=== PATIENT | female | born 1995 | race Caucasian/White ===

== ENCOUNTER 2019-05-05 13:09 | Outpatient (CLI) | payer MEDICAID, SELFPAY ==
--- NOTE | 2019-05-05 | US_ITS ---
WS: [id number] OB ultrasound, 05/05/2019 Clinical Data: SUPERVISION OF NORMAL IN MULTIGRAVIDA IN SECOND TR Comparison: None. Findings: There is a single intrauterine in the breech presentation. The placenta is Anterior and gra de 0. There is a normal amount of amnionic fluid. The heart rate is 141 beats per minute. Measurements of growth and development: BPD: 5.0 cm HC: 18.5 cm AC: 16.4 cm FL: 3.6 cm The estimated weight is 422 g or approximately 15 ounces. The estimated gestational age is 21 weeks 2 days with an ERNST of approximately 09/13/2019. anatomy show a normal stomach, kidneys, bladder, cord insertion, three-vessel cord, entire spin e, four-chamber heart, lateral cerebral ventricles, cerebellum and cisterna magna. US/US OB >= 14 weeks fetus [id number] Impression: 1. Single intrauterine in breech presentation. 2. Estimated gestational age 21 weeks 2 days with an ERNST of 09/13/2019. 3. heart rate 141 beats per minute.
== END 2019-05-05 13:10 | disposition home or self-care (01) ==
PROVIDERS: Family Provider Family Medicine; Visit Provider Family Medicine
DX: O32.1XX0 Maternal care for breech presentation, not applicable or unspecified (principal); Z3A.21 21 weeks gestation of pregnancy

== ENCOUNTER 2019-06-08 12:49 | Outpatient (CLI) | payer MEDICAID, SELFPAY ==
[2019-06-08 13:16] VITALS: BP 117/63; PULSE 77; RESP 17; TEMP 36.8
[2019-06-08] MEDS: nitrofurantoin SR (BID) 100 mg Capsule PO (13:43)
[2019-06-08 13:50] VITALS: BP 117/63; PULSE 77; RESP 17; TEMP 36.8
[2019-06-08 14:06] LABS: Bilirubin Urine Neg (NEGATIVE); Blood Urine 3+ (Negative); Glucose Urine UA Norm (Normal); Ketones Urine Negative (Negative); Nitrate Urine Negative (Negative); Protein Urine 1+ (Negative); Specific Gravity, Urine 1.015 (1.005-1.030); Urine Appearance Bloody (CLEAR); Urine Color Red (Yellow)
[2019-06-08 14:07] LABS: Sulfosalicylic Acid Urine Positive; pH Urine 9 (5-7)
[2019-06-08 14:08] LABS: Leukocyte Esterase Urine Negative (Negative); Urobilinogen Urine Norm (Negative)
[2019-06-08 14:09] LABS: RBC Urine TOO NUMEROUS TO CNT /hpf (0-2)
[2019-06-08 14:10] LABS: Bacteria Urine 2+; Mucus Urine 1+
[2019-06-08 14:11] LABS: Add Urine Culture? No
== END 2019-06-08 13:50 | disposition home or self-care (01) ==
LOC: OPOB 13:08 → OBGYN 13:17 → OPOB 06-09 08:18
PROVIDERS: Family Provider Family Medicine; Visit Provider Family Medicine
DX: O46.90 Antepartum hemorrhage, unspecified, unspecified trimester (principal); Z3A.00 Weeks of gestation of pregnancy not specified
CPT/HCPCS: 81001; 87086; 99211

== ENCOUNTER 2019-09-08 01:03 | Outpatient (CLI) | payer MEDICAID, SELFPAY ==
[2019-09-08] VITALS (12 sets, daily range): BP systolic 0–133; BP diastolic 0–77; PULSE 71–96; RESP 16; TEMP 36.7–36.8; BMI 27.4
== END 2019-09-08 03:19 | disposition home or self-care (01) ==
LOC: OPOB 01:05 → OBGYN 01:06
PROVIDERS: Family Provider Family Medicine; Visit Provider Family Medicine
DX: O26.899 Other specified pregnancy related conditions, unspecified trimester (principal); Z3A.00 Weeks of gestation of pregnancy not specified; R10.9 Unspecified abdominal pain
CPT/HCPCS: 59025; 99211

== ENCOUNTER 2019-09-11 01:56 | Inpatient (IN) | payer MEDICAID, SELFPAY ==
[2019-09-11] VITALS (69 sets, daily range): BP systolic 0–161; BP diastolic 0–92; PULSE 54–101; RESP 16–18; TEMP 36.6–37.1; O2SAT 97–100
[2019-09-11 02:52] LABS: Nitrazine Paper, PH Inconclusive
[2019-09-11 02:57] LABS: Actim Prom Positive
[2019-09-11 04:15] LABS: Basophils % 0.3 %; Eosinophils # 0.2 10^3/uL (0.0-0.8); Eosinophils % 1.6 %; Hematocrit 31.8 % (37.0-47.0); Hemoglobin 9.9 g/dL (11.5-15.3); Lymphocytes # 2.4 10^3/uL (0.8-4.8); Lymphocytes % 21.5 %; Mean Corpuscular HGB Conc 31.1 g/dL (30.0-36.0); Mean Corpuscular Hemoglobin 25.7 pg (28.0-34.0); Mean Corpuscular Volume 82.6 fL (81-99); Mean Platelet Volume 10.8 fL (7.4-10.4); Monocytes # 0.8 10^3/uL (0.2-0.9); Monocytes % 7.6 %; Neutrophils # 7.6 10^3/uL (1.8-7.7); Neutrophils % 68.5 %; Nucleated Red Blood Cells % 0 %; Platelet Count 325 10^3/cmm (130-400); Red Blood Count 3.85 10^6/uL (4.1-5.3); Red Cell Distribution Width 17.2 % (12.1-15.1); White Blood Count 11.1 10^3/uL (4.0-10.0)
[2019-09-11] MEDS: lactated ringers 1,000 ML 999 ML IV (05:14)
[2019-09-11] MEDS: alum-mag-hydroxide-sime 30 mL UDC PO (05:21)
--- NOTE | 2019-09-11 08:24 | ANES.PREANE2 ---
Pre-Anesthetic Assessment Pre-Anesthetic Assessment: Height/Weight: Height 1.75 m Weight 189 g Temp Pulse Resp BP Pulse Ox 97.8 F 65 16 106/56 97 09/11/19 07:43 09/11/19 08:13 09/11/19 07:43 09/11/19 08:13 09/11/19 05:39 Preop Diagnosis: Labor Pain Proposed Procedure: NERI Was Beta Joni taken within 24 hours: N/A Last Intake: 21:00 Social: Social History: No alcohol and No tobacco Exam: Pre-Anes Outpt Exam: alert, oriented x 3, clear to auscultation bilaterally and regular rate & rhythm Airway: Submandibular: WNL Cervical ROM: WNL MP: 2 Dentition: Full History/ROS: No significant history except as noted and No significant complaints CV/HEM: CV/HEM: None reported : : None reported Hepatic: Hepatic: None reported GI: GI: None reported Metabolic: Metabolic: None reported Musc/skel: Musc/skel: None reported Neuropsych: Neuropsych: None reported Anesthetic Plan: ASA status: 2 Anesthesia: Anesthesia Evaluation and Regional (specify below) Other: NERI Risk of > 500 ml blood loss (7ml/kg in children): No Meds/Allergies Current Medications: Current Medications Generic Name Dose Route Start Last Admin Trade Name Freq PRN Reason Stop Dose Admin Al Hydrox/Mg [place] x/Simethicone 30 ml 09/11/19 04:01 09/11/19 05:21 Maalox PO 30 ml Q4H PRN Administration INDIGESTION Ropivacaine 200 mg in 100 mls @ 13 mls/hr 09/11/19 04:00 09/11/19 05:19 Naropin Premix EPIDURAL 13 mls/hr .[id number] RELL Administration PFSH Anesthesia Female Reproductive History: : 3 Data Anesthesia CBC & Chem 7: 09/11/19 03:55 Other Labs: Laboratory Results - last 48 hr 09/11/19 09/11/19 02:40 03:55 WBC 11.1 H RBC 3.85 L Hgb 9.9 L Hct 31.8 L MCV 82.6 MCH 25.7 L MCHC 31.1 RDW 17.2 H Plt Count 325 MPV 10.8 H Neut % (Auto) 68.5 Lymph % (Auto) 21.5 [place] % (Auto) 7.6 Eos % (Auto) 1.6 Baso % (Auto) 0.3 Neut # (Auto) 7.6 Lymph # (Auto) 2.4 [place] # (Auto) 0.8 Eos # (Auto) 0.2 Baso # (Auto) 0.0 Nucleated RBC % (auto) 0 Nucleated RBCs # 0.0 Insulin-like GF I Positive Cardiac Studies: No Data to Display
--- NOTE | 2019-09-11 08:25 | ANES.PROC ---
Anesthesia Procedures Procedure/Date: 09/11/19 Epidural: Time Out Performed: Yes Consents Signed: Procedure Consent Consent: requested by attending/covering physician Lumbar Level: L3-L4 Epidural position: sitting Epidural procedure: sterile prep of area, 1% lidocaine to numb the area, 18 g needle, negative for paresthesia passed, neg for paresthesia, test dose given, 1.5% xylocaine 1:200k epi, 0.2% Ropivacaine bolus ml, placed PCEA, no systemic response, sterile dressing applied, L.U.D. no apparent complications and 0.2% Ropiavacaine @ mls/hr Additional Comments: JOSE MANUEL at 6 cm. Ropiv 0.2% 8cc and Fentanyl 100 mcg bolus
[2019-09-11] MEDS: oxytocin 30 UNIT/500 ML BAG 600 UNIT IV (09:45)
--- NOTE | 2019-09-11 10:00 | P.PCNOB_ITS ---
Delivery Note: Date of delivery: September 11, 2019 Pre-Delivery Course: The patient had routine care at [facility]. There were no complications during the Delivery: This is a 24-year-old G2, P1 at 39 weeks 4 days gestation who was admitted to labor and delivery in active labor with spontaneous rupture of membranes. She had clear fluid noted. She was GBS negative. She received an epidural for pain management. She had a normal spontaneous vaginal delivery of a viable female weight 3720 g 8 pounds 5 ounces Apgars 9 and 9 over an intact perineum. The was suctioned at delivery and placed on the mother's chest. The cord was clamped and cut. Cord blood was obtained. The placenta was delivered grossly intact and normal to inspection. There was a very small second-degree perineal laceration that was sutured using 3-0 chromic. Mother and infant were doing well after delivery. EBL 200 mL A&P Assessment and plan (1) Normal spontaneous vaginal delivery: Routine care Status: Acute Coding Level of Care Code Acute Production Controller for Chg Fwd Diagnoses Normal spontaneous vaginal delivery O80
--- NOTE | 2019-09-11 13:00 | PC.NURSE ---
Patient ambulated to room assisted by nurse
[2019-09-11] MEDS: lanolin oint 7 gm 1 APPLIC TOPICAL (13:22)
[2019-09-11] MEDS: docusate sodium 100 mg Capsule PO (17:50)
[2019-09-11] MEDS: benzocaine-menthol 78 gm Canister 1 SPRAY TOPICAL (20:11)
[2019-09-11 22:03] LABS: Hematocrit 31.8 % (37.0-47.0); Hemoglobin 10.2 g/dL (11.5-15.3); Mean Corpuscular HGB Conc 32.1 g/dL (30.0-36.0); Mean Corpuscular Hemoglobin 26.8 pg (28.0-34.0); Mean Corpuscular Volume 83.7 fL (81-99); Mean Platelet Volume 10.9 fL (7.4-10.4); Platelet Count 316 10^3/cmm (130-400); Red Cell Distribution Width 16.9 % (12.1-15.1)
[2019-09-12 04:00] VITALS: BP 129/66; PULSE 60; RESP 16; TEMP 36.7; O2SAT 96
[2019-09-12] MEDS: prenatal vitamin Capsule 1 CAP PO (08:36)
[2019-09-12] MEDS: docusate sodium 100 mg Capsule PO (08:36)
[2019-09-12 10:20] VITALS: BP 119/73; PULSE 84; RESP 16; TEMP 36.7; O2SAT 97
--- NOTE | 2019-09-12 11:31 | P.DS_ITS ---
Discharge Providers MANAGER NON PROFIT Date of Admission: 09/11/19 01:56 Date of Discharge: 09/12/19 Attending Provider at Admission: Emilee Caldwell MD Attending Provider at Discharge: Emilee Caldwell MD Diagnoses at Discharge Discharge Diagnosis (1) Normal spontaneous vaginal delivery: Status: Acute Reason for Visit Reason for Visit: Reason For Visit: CONTRACTIONS Hospital Course Hospital Course: This is a 24-year-old G2 now P2 who was admitted in active labor with spontaneous rupture of membranes. She had a normal spontaneous va ginal delivery of a viable female . After delivery mother and infant were doing well. On day #1 she was ambulating, tolerating a regular diet, had decreased vaginal bleeding and was comfortable with discharge home Information Peripartum Data: Infant Delivery Method: Vaginal Physical Exam HENMT: COMMON NORMALS: normocephalic HEAD & SCALP: normocephalic Eye: COMMON NORMALS: Equal, round and reactive pupils present and EOMs intact bilaterally PUPIL: Yes Equal, round and reactive pupils present Chest: COMMONS NORMALS: normal inspection of the chest Resp: COMMON NORMALS: normal respiratory effort, No retractions and clear to auscultation bilaterally AUSCULTATION: clear to auscultation bilaterally Cardio: COMMON NORMALS: regular rate and regular rhythm RATE: regular rate RHYTHM: regular rhythm GI: COMMON NORMALS: Soft to palpation and non-tender (Fundus firm U- 3) PALPATION: Yes Soft to palpation Extremity: COMMON NORMALS: negative for no calf tenderness GENERAL: No edema Psych: COMMON NORMALS: mental status grossly normal and Normal thought process present THOUGHT PROCESS: Normal thought process present Urinary Catheter Management^: Lloyd: Cath Placed During This Visit: yes Urinary Catheter Date of Insertion: 09/11/19 Urinary Catheter Time of Insertion: 05:30 Discharge Data Data Completed and Pending: Labs from last 24 hours 09/11/19 21:40 WBC 13.0 H RBC 3.80 L Hgb 10.2 L Hct 31.8 L MCV 83.7 MCH 26.8 L MCHC 32.1 RDW 16.9 H Plt Count 316 MPV 10.9 H Vitals: Last Vital Signs Temp 98.0 F 09/12/19 10:20 Pulse 84 09/12/19 10:20 Resp 16 09/12/19 10:20 BP 119/73 05/15/20 10:20 Pulse Ox 97 09/12/19 10:20 Discharge Plan Discharge Patient Disposition: Home, Self-Care Condition: Stable Prescriptions: Continued PNV cmb#[id number]-ferrous fumarate-FA [ Multivitamins] 28 mg iron- 800 mcg Tablet 1 tab PO DAILY RF: 0 Discharge Orders: Discharge Order (Routine); Ordered 09/12/19 Ordered By: Emilee Caldwell Referrals: Emilee Caldwell MD [Family Provider] - 1 month Discharge Diet: Usual diet Discharge Activity: Limit activity as instructed Patient Instructions: Vitamins (By mouth), OB Discharge Report, OB Food/Drug Interaction Guide, OB Care at Home, OB Home Care, OB Proud Parent Packet, OB Vaginal Deliveries Discharge Attestations MANAGER NON PROFIT Time Spent in Discharge Care*: less than 30 min Coding Level of Care Code Acute Film Flat Inspector for Chg Fwd Diagnoses Normal spontaneous vaginal delivery O80
[2019-09-12 13:05] VITALS: BP 111/70; PULSE 84; RESP 16; TEMP 36.7; O2SAT 97
[2019-09-12 13:33] VITALS: BP 111/70; PULSE 84; RESP 16; TEMP 36.7; O2SAT 97
== END 2019-09-12 13:33 | disposition home or self-care (01) | DRG 807 ==
LOC: OBGYN 02:24 → OPOB 10:14 → OBGYN 10:14
PROVIDERS: Admitting Provider Family Medicine; Family Provider Family Medicine; Visit Provider Family Medicine
DX: O70.1 Second degree perineal laceration during delivery (principal); Z37.0 Single live birth; Z3A.39 39 weeks gestation of pregnancy
CPT/HCPCS: 12345; 36415; 51702; 59025; 59409; 83986; 84112; 85025; 85027; 96374; 99211; J2795; J3010

== ENCOUNTER → 2022-03-28 15:07 | Outpatient (BNVA) | payer MEDICAID, SELFPAY | PROVIDERS: Family Provider Family Medicine; Visit Provider Obstetrics & Gynecology | DX: E28.2 Polycystic ovarian syndrome (principal); F32.A Depression, unspecified; R63.4 Abnormal weight loss | CPT/HCPCS: 76830 ==

== ENCOUNTER → 2022-03-29 11:10 | Outpatient (BNVA) | payer MEDICAID, SELFPAY | PROVIDERS: Family Provider Family Medicine; Visit Provider Obstetrics & Gynecology | DX: R63.4 Abnormal weight loss (principal); E28.2 Polycystic ovarian syndrome; F32.A Depression, unspecified | CPT/HCPCS: 84443 ==

== ENCOUNTER → 2022-05-31 14:58 | Outpatient (BNVA) | payer MEDICAID, SELFPAY | PROVIDERS: Family Provider Family Medicine; Visit Provider Nurse Practitioner Women's Health | DX: R39.9 Unspecified symptoms and signs involving the genitourinary system (principal); Z20.2 Contact with and (suspected) exposure to infections with a predominantly sexual mode of transmission | CPT/HCPCS: 81000 ==

== ENCOUNTER 2022-07-18 11:44 | Emergency (ER) | payer MEDICAID, SELFPAY ==
[2022-07-18 11:51] VITALS: BP 120/79; PULSE 71; RESP 15; TEMP 36.7; O2SAT 99
--- NOTE | 2022-07-18 12:18 | ED_ITS ---
HPI - Abdominal Pain General: Chief Complaint: Abdominal Pain Stated Complaint: abd pain Time Seen by Provider: 07/18/22 12:18 Source: patient Mode of arrival: ambulatory Limitations: no limitations History of Present Illness: Patient is a 27-year-old female who presents to ED today with a complaint of lower pelvic pain over the past several days. Patient states she does have a history of PCOS and states her pain feels like ovarian pain. She is not having any vaginal bleeding. She does report vaginal discharge. She states she was diagnosed with chlamydia a few months ago and completed her course of doxycycline. She states her partner was also treated. She states she has not had intercourse since that treatment. She denies dyspareunia. Denies urinary symptoms. Denies any nausea, vomiting, diarrhea, or changes in bowel habits. No fevers. MD elicited complaint: abdominal pain (pelvic pain) Pertinent past history: other (ovarian cysts) Onset (ago): day(s) Pain Consistency: constant Location: Pelvis Severity: moderate Quality: stabbing and sharp Radiation: none Migration to: no migration Exacerbating factors: nothing Relieving factors: nothing Associated Symptoms: Denies chills, diarrhea, dysuria, fever(s), hematuria, nausea and vomiting Related Data: Patient : No Review of Systems Const: Denies: fever(s), chills, body aches, fatigue or malaise Card: Denies: chest pain Resp: Denies: dyspnea GI: Denies: abdominal pain, nausea, vomiting or diarrhea : Reports: vaginal discharge and pelvic pain; Denies: flank pain, difficulty voiding, dysuria, urinary frequency, urinary urgency, urinary hesitancy, hematuria, genital lesions, genital pruritis, vaginal odor or vaginal bleeding Musc: Denies: back pain Skin/Breast: Denies: rash Neuro: Denies: headache(s) or dizziness PFSH ED PFSH: Medical History No pertinent past medical history Family History Grandmother Breast cancer paternal Father Diabetes Mother Stroke Denies family history of Colon cancer Ovarian cancer Hypercholesteremia Hypertension Uterine cancer Thyroid disease Social History Smoking and tobacco status: current every day smoker Physical Exam Const: COMMON NORMALS: no acute distress, average body habitus, patient oriented x3, no limitations, healthy appearing, alert and well nourished GENERAL APPEARANCE: cooperative ORIENTATION/CONSCIOUSNESS: Yes awake, Yes oriented to person, Yes oriented to place and Yes oriented to time Resp: COMMON NORMALS: normal respiratory effort and clear to auscultation bilaterally AUSCULTATION: clear to auscultation bilaterally Cardio: COMMON NORMALS: regular rate and regular rhythm RATE: regular rate RHYTHM: regular rhythm GI: COMMON NORMALS: Normal to inspection, nondistended, normoactive bowel sounds present, Soft to palpation, No hepatosplenomegaly present and no masses INSPECTION: Yes normal to inspection AUSCULTATION: Yes normoactive bowel sounds PALPATION: Yes Soft to palpation, Yes Tenderness to palpation present (GI) (pelvis), No Guarding due to palpation present (GI), No Rigid due to palpation and Yes No hepatosplenomegaly present : COMMON NORMALS: Yes no CVA tenderness BLADDER/KIDNEY EXAM: Yes no CVA tenderness OTHER: pt deferred pelvic exam-agreeable to self collect swabs Back/Pelvis: COMMON NORMALS: no CVA tenderness Neuro: DAVID COMA SCALE: document GCS findings Jackson coma scale eye opening: Spontaneous Jackson coma scale verbal response: Orientated Jackson coma scale motor response: Obey commands David coma scale total score: 15 COMMON NORMALS: patient oriented x3 SENSORIUM/ORIENTATION: Yes alert, Yes oriented to person, Yes oriented to place and Yes oriented to time Skin: COMMON NORMALS: no rashes or lesions noted GENERAL SKIN EXAM: no rashes or lesions noted Course Vital Signs: Vital signs: Vital Signs Temperature 98.1 F 07/18/22 11:51 Pulse Rate 71 07/18/22 11:51 Respiratory Rate 15 07/18/22 11:51 Blood Pressure 120/79 07/18/22 11:51 Pulse Oximetry 99 07/18/22 11:51 Oxygen Delivery Me thod 07/18/22 11:51 MDM - Abdominal Pain Medical Decision Making Patient appears in no acute distress. Her vital signs are normal. Blood work /UA is unremarkable. CT scan showing bilateral ovarian cyst with a large cyst on her left. Wet prep is negative for trichomoniasis, BV, yeast. Gonorrhea/chlamydia swab pending. She would like to hold off on prophylactic treatment at this time. Recommend she follow-up with her bronze plater as soon as possible. Return ED precautions given. Lab Data 07/18/22 12:37 07/18/22 12:37 Labs/Radiology: Radiology Impressions Transvaginal US 07/18/22 13:01 Impression: Bilateral ovarian cysts with a large cyst on the left. Laboratory Results WBC 5.9 10^3/uL (4.0-10.0) 07/18/22 12:37 RBC 4.33 10^6/uL (4.1-5.3) 07/18/22 12:37 Hgb 12.2 g/dL (11.5-15.3) 07/18/22 12:37 Hct 38.1 % (37.0-47.0) 07/18/22 12:37 MCV 88.0 fl (81-99) 07/18/22 12:37 MCH 28.2 pg (28.0-34.0) 07/18/22 12:37 MCHC 32.0 g/dL (30.0-36.0) 07/18/22 12:37 RDW 13.2 % (12.1-15.1) 07/18/22 12:37 Plt Count 325 10^3/cmm (130-400) 07/18/22 12:37 MPV 9.9 fL (7.4-10.4) 07/18/22 12:37 Neut % (Auto) 60.8 % 07/18/22 12:37 Lymph % (Auto) 30.4 % 07/18/22 12:37 [place] % (Auto) 6.3 % 07/18/22 12:37 Eos % (Auto) 2.0 % 07/18/22 12:37 Baso % (Auto) 0.3 % 07/18/22 12:37 Neut # (Auto) 3.58 10^3/uL (1.8-7.7) 07/18/22 12:37 Lymph # (Auto) 1.8 10^3/uL (0.8-4.8) 07/18/22 12:37 [place] # (Auto) 0.4 10^3/uL (0.2-0.9) 07/18/22 12:37 Eos # (Auto) 0.1 10^3/uL (0.0-0.8) 07/18/22 12:37 Baso # (Auto) 0.0 10^3/uL (0.0-0.1) 07/18/22 12:37 Nucleated RBC % (auto) 0 % 07/18/22 12:37 Nucleated RBCs # 0.0 /100WBC 07/18/22 12:37 Sodium 137 mmol/L (136-145) 07/18/22 12:37 Potassium 4.1 mmol/L (3.5-5.1) 07/18/22 12:37 Chloride 105 mmol/L (98-107) 07/18/22 12:37 Carbon Dioxide 23 mmol/L (22-29) 07/18/22 12:37 Anion Gap 13.1 (5-19) 07/18/22 12:37 BUN 6 mg/dL (6-20) 07/18/22 12:37 Creatinine 0.6 mg/dL (0.5-0.9) 07/18/22 12:37 GFR Calculation 121.8 mL/min (90-130) 07/18/22 12:37 Glucose 77 mg/dL (65-115) 07/18/22 12:37 Calculated Osmolality 280 mOsm/kg (285-295) L 07/18/22 12:37 Calcium 8.9 mg/dL (8.5-10.5) 07/18/22 12:37 Total Bilirubin 0.3 mg/dL (0.15-1.2) 07/18/22 12:37 AST 12 U/L (0-32) 07/18/22 12:37 ALT < 5 U/L (0-33) 07/18/22 12:37 Alkaline Phosphatase 53 U/L (35-105) 07/18/22 12:37 Total Protein 6.9 g/dL (6.6-8.7) 07/18/22 12:37 Albumin 4.1 g/dL (3.5-5.2) 07/18/22 12:37 Globulin 2.8 g/dL (1.3-4.6) 07/18/22 12:37 Lipase 34 U/L (13-60) 07/18/22 12:37 HCG, Qual Negative (Negative) 07/18/22 12:37 Urine Color Yellow (Yellow) 07/18/22 12:37 Urine Appearance Clear (CLEAR) 07/18/22 12:37 Urine pH 5 (5-7) 07/18/22 12:37 Ur Specific [place] 1.020 (1.005-1.030) 07/18/22 12:37 Urine Protein Neg (Negative) 07/18/22 12:37 Urine Glucose (UA) Norm (Normal) 07/18/22 12:37 Urine Ketones Negative (Negative) 07/18/22 12:37 Urine Blood Neg (Negative) 07/18/22 12:37 Urine Nitrate Negative (Negative) 07/18/22 12:37 Urine Bilirubin Neg (Negative) 07/18/22 12:37 Urine Urobilinogen Neg mg/dL (Negative) 07/18/22 12:37 Ur Leukocyte Esterase Trace (Negative) H 07/18/22 12:37 Urine RBC None /hpf (0-2) 07/18/22 12:37 Urine WBC 0-4 /hpf (0-5) H 07/18/22 12:37 Ur Squamous Epith Cells 0-4 /hpf (0-5) H 07/18/22 12:37 Calcium Oxalate Crystal 5-10 /hpf H 07/18/22 12:37 Amorphous Sediment Not Reportable 07/18/22 12:37 Urine Bacteria Trace /hpf (NONE) 07/18/22 12:37 Discharge Plan Discharge Patient Disposition: Home Clinical Impression: PCOS (polycystic ovarian syndrome), Pelvic pain Condition: Stable Prescriptions: New acetaminophen-codeine 300-30 mg tablet 1 tab PO Q6H PRN (Reason: pain) Qty: 10 0RF No Action citalopram [Celexa] 10 mg tablet 10 mg PO DAILY Qty: 30 6RF levonorgestrel-ethinyl estrad [Aviane] 0.1-20 mg-mcg tablet 1 tab PO DAILY Qty: 28 12RF sertraline [Zoloft] 50 mg tablet 50 mg PO DAILY Qty: 30 3RF Rx Instructions: starting dose 25 mg for 7 days then increase to 50 mg/daily doxycycline hyclate 100 mg capsule 100 mg PO BID Qty: 14 0RF azithromycin 250 mg tablet 1,000 mg PO ONCE 1 Days Qty: 4 0RF Rx Instructions: take together as one dose Discharge Orders: Discharge ED (Routine); Ordered 07/18/22 Ordered By: Cierra Quach Patient Instructions: Ovarian Cyst (ED), Pelvic Pain (ED) Stand Alone Forms: Work/School Release Coding Level of Care Code ED [employer] Professional for Dolores Encarnacion
[2022-07-18 12:53] LABS: Basophils % 0.3 %; Eosinophils # 0.1 10^3/uL (0.0-0.8); Hematocrit 38.1 % (37.0-47.0); Hemoglobin 12.2 g/dL (11.5-15.3); Lymphocytes # 1.8 10^3/uL (0.8-4.8); Lymphocytes % 30.4 %; Mean Corpuscular Hemoglobin 28.2 pg (28.0-34.0); Mean Platelet Volume 9.9 fL (7.4-10.4); Monocytes # 0.4 10^3/uL (0.2-0.9); Monocytes % 6.3 %; Neutrophils # 3.58 10^3/uL (1.8-7.7); Neutrophils % 60.8 %; Nucleated Red Blood Cells % 0 %; Platelet Count 325 10^3/cmm (130-400); Red Blood Count 4.33 10^6/uL (4.1-5.3); Red Cell Distribution Width 13.2 % (12.1-15.1); White Blood Count 5.9 10^3/uL (4.0-10.0)
--- NOTE | 2022-07-18 13:01 | US_ITS ---
WS: [id number] Pelvic ultrasound, 07/18/2022 Clinical Data: pelvic pain Comparison: Pelvic ultrasound, 03/28/2022 Findings: The uterus measures 8.6 cm x 5.9 cm x 5.6 cm. The endometrium is is not increased in size. No intrauterine or abnormal intrauterine mass is seen. There is minimal fluid in the endometrium. The cervical length is long and closed . The left ovary measures 5.2 cm x 2.8 cm x 4.7 cm with a simple cyst measuring 2.97 x 3.02 x 4.41 cm. The right ovary measures 3.9 cm x 3.0 cm x 2.5 cm with a simple cyst measuring 0.88 x 1.38 x 1.40 cm. There is minimal fluid in the cul-de-sac US/US transvaginal [id number] Impression: Bilateral ovarian cysts with a large cyst on the left.
[2022-07-18 13:11] LABS: Alanine Aminotransferase < 5 U/L (0-33); Albumin Level 4.1 g/dL (3.5-5.2); Alkaline Phosphatase 53 U/L (35-105); Anion Gap 13.1 (5-19); Aspartate Amino Transferase 12 U/L (0-32); Blood Urea Nitrogen 6 mg/dL (6-20); Calcium 8.9 mg/dL (8.5-10.5); Carbon Dioxide 23 mmol/L (22-29); Chloride 105 mmol/L (98-107); Globulin 2.8 g/dL (1.3-4.6); Glomerular Filtration Rate 121.8 mL/min (90-130); Glucose 77 mg/dL (65-115); Lipase 34 U/L (13-60); Osmolality Calculated 280 mOsm/kg (285-295); Potassium 4.1 mmol/L (3.5-5.1); Sodium 137 mmol/L (136-145); Total Bilirubin 0.3 mg/dL (0.15-1.2); Total Protein 6.9 g/dL (6.6-8.7)
[2022-07-18 13:14] LABS: HCG, Serum Qual Negative (Negative)
[2022-07-18 13:29] LABS: Add Urine Microscopic? YES; Bilirubin Urine Neg (Negative); Blood Urine Neg (Negative); Glucose Urine UA Norm (Normal); Ketones Urine Negative (Negative); Leukocyte Esterase Urine Trace (Negative); Nitrate Urine Negative (Negative); Protein Urine Neg (Negative); Urine Appearance Clear (CLEAR); Urine Color Yellow (Yellow); Urobilinogen Urine Neg (Negative); pH Urine 5 (5-7)
[2022-07-18 13:30] LABS: Bacteria Urine TRACE /hpf; Squamous Epithelial Cell Urine 0-4 /hpf (0-5); WBC Urine 0-4 /hpf (0-5)
[2022-07-18 13:31] LABS: Add Urine Culture? No
[2022-07-18 14:50] VITALS: BP 103/68; PULSE 67; RESP 18; TEMP 36.8; O2SAT 100
--- NOTE | 2022-07-21 12:57 | DCPLANNER ---
manager private called patient due to no primary care physician - patient declines at this time
== END 2022-07-18 14:34 | disposition home or self-care (01) ==
PROVIDERS: Emergency Provider Physician Assistant
DX: E28.2 Polycystic ovarian syndrome (principal); F17.210 Nicotine dependence, cigarettes, uncomplicated
CPT/HCPCS: 76830; 80053; 81001; 83690; 84703; 85025; 87210; 87491; 87591; 99284

== ENCOUNTER → 2022-09-01 08:10 | Outpatient (BNVA) | payer MEDICAID, SELFPAY | PROVIDERS: Visit Provider Obstetrics & Gynecology | DX: E28.2 Polycystic ovarian syndrome (principal) | CPT/HCPCS: 76830 ==

== ENCOUNTER → 2022-09-29 15:30 | Outpatient (BNVA) | payer MEDICAID, SELFPAY | PROVIDERS: Visit Provider Obstetrics & Gynecology | DX: N89.8 Other specified noninflammatory disorders of vagina (principal) | CPT/HCPCS: 81000; 87086 ==

== ENCOUNTER → 2022-11-14 14:10 | Outpatient (BNVA) | payer MEDICAID, SELFPAY | PROVIDERS: Visit Provider Obstetrics & Gynecology | DX: Z32.00 Encounter for pregnancy test, result unknown (principal) | CPT/HCPCS: 84702 ==

== ENCOUNTER 2022-11-15 13:09 | Emergency (ER) | payer MEDICAID, SELFPAY ==
[2022-11-15 13:11] VITALS: BP 102/73; PULSE 83; RESP 16; TEMP 37; O2SAT 100; BMI 21.4
--- NOTE | 2022-11-15 13:35 | ED_ITS ---
HPI - Neuro Symptoms/Deficit General: Chief Complaint: Neuro Symptoms/Deficit Stated Complaint: numbness in hands and face, slurred speech Time Seen by Provider: 11/15/22 13:22 Source: patient Mode of arrival: ambulatory History of Present Illness: 27-year-old female who presents to the emergency room with complaints of headache and slurred speech states she has some weakness in her right arm. States it began about 45 minutes to an hour prior to arrival. She tells me she is never had a headache this bad in her life. She said she had a positive test this week. She also has seen several other emergency room's in the last 2 weeks and had CTs for evaluation of for headaches to rule out tumor. She said this headache seems different. During stroke testing she has ataxia of her left leg and her right arms complaining of numbness in her right arm. She does not seem to have any dysarthria although she presents is saying she has slurring of her speech none is noted during exam. No recent trauma. There is a serum quantitative beta-hCG in the chart from yesterday Of 16,669. Onset (ago): day(s) Location: speech, right arm and left leg Quality: weak Relieving factors: none Exacerbating factors: none Associated symptoms: Reports headache(s); Deny chest pain, cough, diaphoresis, fevers/chills, anorexia, malaise, nausea, seizures, short of breath, syncope, tingling, vertigo, vomiting or weakness Treatments Prior to Arrival: none Review of Systems Const: Denies: fever(s), chills, malaise or diaphoresis Eyes: Denies: change in vision ENMT: Denies: throat pain, ear or mastoid pain, nasal discharge or nasal congestion Card: Denies: chest pain or syncope Resp: Denies: dyspnea, productive cough or non-productive cough GI: Denies: abdominal pain, nausea or vomiting : Denies: flank pain, difficulty voiding, dysuria, urinary frequency or urinary urgency Skin/Breast: Denies: rash or pruritus Neuro: Reports: headache(s), numbness in extremities and Slurred speech present; Denies: vertigo PFSH ED PFSH: Medical History No pertinent past medical history Family History Grandmother Breast cancer paternal Father Diabetes Mother Stroke Denies family history of Colon cancer Ovarian cancer Hypercholesteremia Hypertension Uterine cancer Thyroid disease Social History Smoking and tobacco status: current every day smoker NIH stroke score NIHSS: Level Of Consciousness - 1a: 0 Level Of Consciousness Questions - 1b: Both Correct Level Of Consciousness Commands - 1c: Both Correct Best Gaze - 2: Normal Visual [place] - 3: No Visual Loss Facial Palsy - 4: Normal Motor Arm Right - 5: Drift Motor Arm Left - 5: No Drift Motor Leg Right - 6: No Drift Motor Leg Left - 6: No Drift Limb Ataxia - 7: Present In Two Limbs (Right arm left leg) Sensory - 8: Normal Best Language - 9: No Aphasia Dysarthia - 10: Normal Extinction And Inattention - 11: 0 Score: Total Score: 3 Physical Exam Const: GENERAL APPEARANCE: cooperative and comfortable ORIENTATION/CONSCIO USNESS: Yes awake, Yes oriented to person, Yes oriented to place and Yes oriented to time HENMT: COMMON NORMALS: normocephalic, atraumatic and hearing grossly normal bilaterally HEAD & SCALP: normocephalic and atraumatic Resp: COMMON NORMALS: normal respiratory effort, No retractions, No use of accessory muscles and clear to auscultation bilaterally AUSCULTATION: clear to auscultation bilaterally Cardio: COMMON NORMALS: regular rate, regular rhythm and No murmurs present (Cardio) RATE: regular rate RHYTHM: regular rhythm GI: COMMON NORMALS: Soft to palpation and No hepatosplenomegaly present AUSCULTATION: Yes normoactive bowel sounds PALPATION: Yes Soft to palpation, No Tenderness to palpation present (GI), No Guarding due to palpation present (GI) and Yes No hepatosplenomegaly present Extremity: COMMON NORMALS: normal to inspection, capillary refill normal, no clubbing, cyanosis or edema, no calf tenderness and no pedal edema Neuro: SENSORIUM/ORIENTATION: Yes oriented to person, Yes oriented to place and Yes oriented to time Skin: COMMON NORMALS: no rashes or lesions noted GENERAL SKIN EXAM: no rashes or lesions noted Course Vital Signs: Vital signs: Vital Signs Temperature 98.6 F 11/15/22 13:11 Pulse Rate 83 11/15/22 13:11 Respiratory Rate 16 11/15/22 13:11 Blood Pressure 102/73 11/15/22 13:11 Pulse Oximetry 100 11/15/22 13:11 Oxygen Delivery Me thod Room Air 11/15/22 13:11 MDM - Neuro Symptoms/Deficit Medical Decision Making Consult to Dr. Teague. He concurs he felt at the time he seen in the best he could give her for an NIH score would be 1. He does not recommend any intervention at this point. He does recommend outpatient MRI of the head and MRI of the head and neck. Repeat beta-hCG was slightly increased today. She is following with Dr. Ding advised her to call Dr. Ding they may not want to repeat this until towards the end of the week she tells me she was scheduled to have her repeated tomorrow. She was given IV Tylenol which resulted in further improvement of her headache. We will discharge patient home have her follow-up with neurology and OB gynecology as above. Medical Records I reviewed the patient's medical records. Lab Data I reviewed the patient's lab results. 11/15/22 13:35 11/15/22 13:[address] 11/15/22 13:55 IMPRESSION: 1. No CT evidence of acute intracranial pathology. 2. Additional findings, as above. Laboratory Results WBC 7.7 10^3/uL (4.0-10.0) 11/15/22 13:35 RBC 3.80 10^6/uL (4.1-5.3) L 11/15/22 13:35 Hgb 11.3 g/dL (11.5-15.3) L 11/15/22 13:35 Hct 33.5 % (37.0-47.0) L 11/15/22 13:35 MCV 88.2 fl (81-99) 11/15/22 13:35 MCH 29.7 pg (28.0-34.0) 11/15/22 13:35 MCHC 33.7 g/dL (30.0-36.0) 11/15/22 13:35 RDW 12.7 % (12.1-15.1) 11/15/22 13:35 Plt Count 332 10^3/cmm (130-400) 11/15/22 13:35 MPV 9.8 fL (7.4-10.4) 11/15/22 13:35 Neut % (Auto) 66.8 % 11/15/22 13:35 Lymph % (Auto) 24.2 % 11/15/22 13:35 [place] % (Auto) 7.1 % 11/15/22 13:35 Eos % (Auto) 1.2 % 11/15/22 13:35 Baso % (Auto) 0.4 % 11/15/22 13:35 Neut # (Auto) 5.12 10^3/uL (1.8-7.7) 11/15/22 13:35 Lymph # (Auto) 1.9 10^3/uL (0.8-4.8) 11/15/22 13:35 [place] # (Auto) 0.5 10^3/uL (0.2-0.9) 11/15/22 13:35 Eos # (Auto) 0.1 10^3/uL (0.0-0.8) 11/15/22 13:35 Baso # (Auto) 0.0 10^3/uL (0.0-0.1) 11/15/22 13:35 Nucleated RBC % (auto) 0 % 11/15/22 13:35 Nucleated RBCs # 0.0 /100WBC 11/15/22 13:35 Sodium 136 mmol/L (136-145) 11/15/22 13:35 Potassium 3.8 mmol/L (3.5-5.1) 11/15/22 13:35 Chloride 103 mmol/L (98-107) 11/15/22 13:35 Carbon Dioxide 23 mmol/L (22-29) 11/15/22 13:35 Anion Gap 13.8 (5-19) 11/15/22 13:35 BUN 9 mg/dL (6-20) 11/15/22 13:35 Creatinine 0.7 mg/dL (0.5-0.9) 11/15/22 13:35 GFR Calculation 102.0 mL/min (90-130) 11/15/22 13:35 Glucose 58 mg/dL (65-115) L 11/15/22 13:35 Calculated Osmolality 278 mOsm/kg (285-295) L 11/15/22 13:35 Calcium 9.4 mg/dL (8.5-10.5) 11/15/22 13:35 Total Bilirubin 0.4 mg/dL (0.15-1.2) 11/15/22 13:35 AST 11 U/L (0-32) 11/15/22 13:35 ALT 7 U/L (0-33) 11/15/22 13:35 Alkaline Phosphatase 50 U/L (35-105) 11/15/22 13:35 Total Protein 7.2 g/dL (6.6-8.7) 11/15/22 13:35 Albumin 4.6 g/dL (3.5-5.2) 11/15/22 13:35 Globulin 2.6 g/dL (1.3-4.6) 11/15/22 13:35 Ser , Semi-Qnt 92603.00 mIU/mL 11/15/22 13:35 Urine Color Colorless (Yellow) 11/15/22 13:35 Urine Appearance Clear (CLEAR) 11/15/22 13:35 Urine pH 5 (5-7) 11/15/22 13:35 Ur Specific [place] 1.010 (1.005-1.030) 11/15/22 13:35 Urine Protein Neg (Negative) 11/15/22 13:35 Urine Glucose (UA) Norm (Normal) 11/15/22 13:35 Urine Ketones Negative (Negative) 11/15/22 13:35 Urine Blood Neg (Negative) 11/15/22 13:35 Urine Nitrate Negative (Negative) 11/15/22 13:35 Urine Bilirubin Neg (Negative) 11/15/22 13:35 Urine Urobilinogen Norm mg/dL (Negative) 11/15/22 13:35 Ur Leukocyte Esterase Negative (Negative) 11/15/22 13:35 Discharge Plan Discharge Patient Disposition: Home Clinical Impression: Condition: Stable Prescriptions: No Action ondansetron HCl 4 mg tablet 4 mg PO Q6H PRN (Reason: nausea and vomiting) Qty: 30 2RF ferrous gluconate 225 mg (27 mg iron) Tablet 225 mg PO DAILY Discharge Orders: Discharge ED (Routine); Ordered 11/15/22 Ordered By: Bladimir Zee Discharge Diet: Usual diet Discharge Activity: Resume usual activity Patient Instructions: Opioid Safety, Pain Management Activity Restrictions/Additional Instructions: Case management make arrangements for you to have an outpatient MRI and MRA of your head and follow-up with neurology. Follow-up with [facility] as previously scheduled. Coding Level of Care Code ED Mainframe Systems Administrator for Dolores Encarnacion
[2022-11-15] MEDS: sodium chloride 0.9% 1,000 ML 999 ML IV (13:44)
[2022-11-15 13:45] LABS: Basophils % 0.4 %; Eosinophils # 0.1 10^3/uL (0.0-0.8); Eosinophils % 1.2 %; Hematocrit 33.5 % (37.0-47.0); Hemoglobin 11.3 g/dL (11.5-15.3); Lymphocytes # 1.9 10^3/uL (0.8-4.8); Lymphocytes % 24.2 %; Mean Corpuscular HGB Conc 33.7 g/dL (30.0-36.0); Mean Corpuscular Hemoglobin 29.7 pg (28.0-34.0); Mean Corpuscular Volume 88.2 fl (81-99); Mean Platelet Volume 9.8 fL (7.4-10.4); Monocytes # 0.5 10^3/uL (0.2-0.9); Monocytes % 7.1 %; Neutrophils # 5.12 10^3/uL (1.8-7.7); Neutrophils % 66.8 %; Nucleated Red Blood Cells % 0 %; Platelet Count 332 10^3/cmm (130-400); Red Cell Distribution Width 12.7 % (12.1-15.1); White Blood Count 7.7 10^3/uL (4.0-10.0)
[2022-11-15] MEDS: ketorolac 30 mg/mL INJ IVP (13:45)
[2022-11-15] MEDS: promethazine 25 mg/mL SDV 1 mL IM (13:47)
--- NOTE | 2022-11-15 13:55 | CTR_ITS ---
PROCEDURE INFORMATION: Exam: CT Head Without Contrast Exam date and time: 11/15/2022 2:08 PM Age: 27 years old Clinical indication: Pain; Headache; Additional info: Headache/ R arm numbness TECHNIQUE: Imaging protocol: Computed tomography of the head without contrast. Axial, coronal and sagittal reformatted images were created and reviewed. Radiation optimization: All CT scans at this facility use at least one of these dose optimization techniques: automated exposure control; mA and/or kV adjustment per patient size (includes targeted exams where dose is matched to clinical indication); or iterative reconstruction. REPORTING DATA: Count of CT and Cardiac NM exams in prior 12 months: This patient has received 0 known CTs and 0 known cardiac nuclear medicine studies in the 12 months prior to the current study. COMPARISON: CT head wo con* [id number] 01/28/2019 3:45 PM RADIATION DOSE METRICS: Total DLP (mGy-cm): 1038.24 FINDINGS: Brain: No CT evidence of acute intracranial hemorrhage or acute territorial infarction. No significant mass effect or midline shift. Basal cisterns patent. Cerebral ventricles: Normal in size and configuration. Paranasal sinuses: Mild ethmoid mucosal thickening. No air-fluid levels. Mastoid air cells: Grossly unremarkable. Bones/joints: No acute osseous abnormality. Soft tissues: Grossly unremarkable. CT/CT head wo con* [id number] IMPRESSION: 1. No CT evidence of acute intracranial pathology. 2. Additional findings, as above.
[2022-11-15 13:57] LABS: Add Urine Microscopic? NO; Charge for UA Resulting for Rev
[2022-11-15 14:00] LABS: Bilirubin Urine Neg (Negative); Blood Urine Neg (Negative); Glucose Urine UA Norm (Normal); Ketones Urine Negative (Negative); Leukocyte Esterase Urine Negative (Negative); Nitrate Urine Negative (Negative); Protein Urine Neg (Negative); Urine Appearance Clear (CLEAR); Urine Color Colorless (Yellow); Urobilinogen Urine Norm (Negative); pH Urine 5 (5-7)
[2022-11-15 14:13] LABS: Alanine Aminotransferase 7 U/L (0-33); Albumin Level 4.6 g/dL (3.5-5.2); Alkaline Phosphatase 50 U/L (35-105); Anion Gap 13.8 (5-19); Aspartate Amino Transferase 11 U/L (0-32); Blood Urea Nitrogen 9 mg/dL (6-20); Calcium 9.4 mg/dL (8.5-10.5); Carbon Dioxide 23 mmol/L (22-29); Chloride 103 mmol/L (98-107); Globulin 2.6 g/dL (1.3-4.6); Glucose 58 mg/dL (65-115); Osmolality Calculated 278 mOsm/kg (285-295); Potassium 3.8 mmol/L (3.5-5.1); Sodium 136 mmol/L (136-145); Total Bilirubin 0.4 mg/dL (0.15-1.2); Total Protein 7.2 g/dL (6.6-8.7)
--- NOTE | 2022-11-15 15:53 | P.CONIM_ITS ---
Providers/Reason For Consult Consulting Physician/Specialty*: Watson Teague MD Neurology and Epilepsy Reason for Consult*: Headache associated with slurred speech and weakness in the right arm and ataxia in the left leg History of Present Illness History of Present Illness Kalie Perez is a 27 year old female who is currently 46 weeks . The patient has a history of syncopal episodes for 5 years. The patient also has a history of migraine headaches for approximately 4 years. Patient's headaches are described as a throbbing sensation behind her eyes that radiates to the occipital area. The patient reports that the pain is severe and it feels as though her eyes are about to pop out of her head. The headaches are associated with photophobia, nausea, vomiting and noise intolerance. The headaches last for hours. The patient rates the headaches a 10 on a scale of 1-10 with 10 being the most severe. According to the patient the headaches occur rarely. But, on 11/13/2022 the patient reports that she was getting ready for work around 7:30 AM. The patient stated that she stood up and her face felt numb and tingling associated with dizziness for 1 to 2 minutes. The symptoms reoccurred approximate 2 hours later associated with severe shaking of her body associated with nausea. The patient stated she was evaluated by her family physician and was diagnosed with anemia and was started on iron supplement 325 mg p.o. daily. The patient stated that after taking 1 dose of the iron she experienced severe nausea and vomiting and dry heaves for approximately 24 hours. The patient stated that she ate her dinner and went to bed and felt better. But, around 10 AM on 11/15/2022 the patient stated that she again experienced severe shaking of her body and approximately 55 minutes later she experienced a severe migraine headache described as severe pressure behind her eyes with radiation to her occipital area. The patient stated that the headache was associated with dizziness. She drove herself to lunch and a friend noticed that she was confused and not making sense while talking associated with increasing headache and loss of feeling in the right hand and tenseness in her jaws. As a result, the patient stated that she presented to the [facility] emergency room for evaluation. In the emergency room the patient's NIH score was reported to be in significant and neurology consult was obtained to assess for stroke versus migraine variant. The patient also informing that approximately 2-1/2 weeks prior to presenting to the [facility] emergency room, she was in [place] at [facility] standing in line and was observed to experience a syncopal episode/seizure. The patient stated that the symptoms began as lightheadedness followed by blurred vision, and loss of tone in her legs with falling. The patient stated that her eyes will be closed and she cannot open them and cannot respond but she can hear everything happening around her. The episodes last for approximately 1 to 5 minutes and resolved. The patient reported that prior to this event the last episode was approximate 1 year ago. Approximately 4 years ago the patient stated she experienced one of her seizure/syncopal episodes associated with tongue biting when she was 7 months with her third child. The patient reported that this syncopal episode was preceded by a migraine headache. According to the patient all of the seizures/syncopal episod es she has experienced have all occurred while she is standing or walking except for the one episode that occurred when she was 7 months she was sitting at that time. In the emergency room, the patient's neurological examination was unrevealing except for decreased pinprick in the first through the fifth digits of the right hand up to her distal palm in a stocking glove distribution. NIH score =1. Noncontrast head CT was obtained and reported to be negative. The patient informed me that she has a mother who experienced a thrombus in her head, stroke, and aneurysm. The patient also stated that her mother has heart disease. Past medical history: Seizure/syncopal episodes occurring when the patient is standing or walking for 5 years Migraine headaches without aura 4 to 6 weeks gestational History of miscarriages x1 Current medications: Anti-nausea medication Iron Pill Drug allergies: None Habits: The patient vapes. The patient denied other drug use Family history: Remarkable for a mother who experienced thrombus in the brain, aneurysm and heart disease Occupation: Patient is employed at [employer] Review of Systems General: Reports: 10 or more systems reviewed and unremarkable except in HPI and below Card: Reports: syncope Neuro: Reports: headache(s) Medications/Allergies Home Medications Medication Instructions Recorded Confirmed Last Taken Type ondansetron HCl 4 mg tablet 4 mg PO Q6H PRN nausea and 11/14/22 11/15/22 3 Rx vomiting #30 tabs ferrous gluconate 225 mg (27 mg 225 mg PO DAILY 11/15/22 11/15/22 Unknown History iron) tablet Allergies Allergy/AdvReac Type Severity Reaction Status Date / Time No Known Allergies Allergy Verified 10/23/22 15:15 PFSH Acute PFSH: Medical History No pertinent past medical history Family History Grandmother Breast cancer paternal Father Diabetes Mother Stroke Denies family history of Colon cancer Ovarian cancer Hypercholesteremia Hypertension Uterine cancer Thyroid disease Social History Smoking and tobacco status: current every day smoker Vitals/I&O/Wt Last Vital Signs Temp 98.6 F 11/15/22 13:11 Pulse 83 11/15/22 13:11 Resp 16 11/15/22 13:11 BP 102/73 11/15/22 13:11 Pulse Ox 100 11/15/22 13:11 O2 Del Method Room Air 11/15/22 13:11 Weight last 48 hrs Weight 145 lb Physical Exam Narrative: NIH score =1 Blood pressure 102/73 The patient is alert and oriented x3. Speech fluent. Head normocephalic. Neck supple. Cranial nerves II through XII intact. Pupils equal round and reactive to light and accommodation. Extraocular movements intact. There were no nystagmus. Visual leyva full via confrontation. Motor testing 5/5 bilaterally. Deep tendon reflexes 2+ and symmetrical. Plantar responses flexor bilaterally. There was no clonus. Sensory examination revealed decreased pinprick in the right hand and her fingers up to her distal palm in a stocking glove distribution. Pinprick was intact in her other extremities. Sensory examination was intact to touch. There was no extinction on double sensory stimulation. Dmmalu-nixt-bntljw and ylab-lpjg-tyot maneuvers were negative for ataxia. Throat clear. Lungs clear. Heart regular rhythm and rate extremities were negative for clubbing cyanosis or edema Data 11/15/22 13:35 11/15/22 13:35 A&P Assessment and plan (1) TIA (transient ischemic attack): Assessment: 1. Transient ischemic attack versus migraine variant manifested as headache associated with slurred speech, weakness in the right arm with right arm numbness and ataxia in the left leg, markedly improved with only residual right hand numbness NIH score =1 2. Recurrent seizures/syncopal episodes precipitated while standing or walking assess for seizures versus autonomic dysfunction 3. Migraine headaches 4. Gestational 4 to 6-weeks 5. Family history of a mother with aneurysm, stroke and blood clot in the brain Plan: 1. Recommend patient undergo outpatient head MRI without contrast with MRA of the [place] of [place] without contrast to assess for strokes and aneurysm respectively 2. Recommend outpatient 70-minute surface EEG recording to assess for seizures and consider continuous inpatient video EEG monitoring if warranted to further clarify syncopal episodes 3. Consider hypercoagulable lab since patient has history of miscarriage and m other with a brain thrombus, stroke and aneurysm 4. Recommend syncope precautions until further notice 5. Would consider having patient undergo outpatient cardiac evaluation with head up tilt study if EEG testing is unrevealing in order to assess for the possibility of POTS syndrome versus neurocardiogenic syncope 6. Please schedule patient for follow-up in the neurology office 2 weeks after discharge from the emergency room (2) Syncope and collapse: (3) Migraine headache: Consult Attestations Medical Necessity Statement: The patient was evaluated by neurology for headache, slurred speech and right hand/arm numbness and left leg ataxia Coding Level of Care Code 89058 Diagnoses TIA (transient ischemic attack) G45.9 Syncope and collapse R55 Migraine headache G43.909 Time Spent (min) 30
[2022-11-15] MEDS: acetaminophen 1,000 MG/100 ML PIGGYBACK 400 MG IV (15:59)
--- NOTE | 2022-11-16 15:01 | DCPLANNER ---
business process manager had message to schedule an outpatient MRI for patient. business process manager called patient to confirm that patient wanted the test ordered and to confirm who patient sees for primary care physician. business process manager called phone number [phone], unable to speak with patient and unable leave a voicemail. This order was not sent to centralized scheduling, due to no primary care physician listed in patients chart.
--- NOTE | 2022-11-16 15:09 | DCPLANNER ---
Addendum entered by Vy Rivera 12/08/22 10:40: Patient did not attend appointment Addendum entered by Vy Rivera 11/21/22 13:45: Patient has a follow up appointment scheduled for November at 1:[address] Teague at neurology. Original Note: atm manager had message to schedule a follow up appointment for patient with neurology. atm manager sent patients information to the front office staff at neurology. Patients information will be printed and reviewed. Clinic will call patient with appointment information.
--- NOTE | 2022-11-17 13:42 | DCPLANNER ---
manager services called patient due to no primary care physician - no answer at this time.
== END 2022-11-15 16:46 | disposition home or self-care (01) ==
PROVIDERS: Emergency Provider Family Medicine
DX: O26.899 Other specified pregnancy related conditions, unspecified trimester (principal); R51.9 Headache, unspecified; Z3A.00 Weeks of gestation of pregnancy not specified; O99.330 Smoking (tobacco) complicating pregnancy, unspecified trimester; F17.210 Nicotine dependence, cigarettes, uncomplicated
CPT/HCPCS: 70450; 80053; 81003; 84702; 85025; 96361; 96365; 96372; 96375; 99285; J0131; J1885; J2550; J7030

== ENCOUNTER → 2022-11-23 11:04 | Outpatient (BNVA) | payer MEDICAID, SELFPAY | PROVIDERS: Visit Provider Obstetrics & Gynecology | DX: Z34.91 Encounter for supervision of normal pregnancy, unspecified, first trimester (principal); Z3A.01 Less than 8 weeks gestation of pregnancy | CPT/HCPCS: 76817 ==

== ENCOUNTER 2022-12-25 09:04 | Emergency (ER) | payer MEDICAID, SELFPAY ==
[2022-12-25 09:16] VITALS: BP 116/81; PULSE 88; RESP 15; TEMP 36.8; O2SAT 99; BMI 20.7
--- NOTE | 2022-12-25 09:30 | US_ITS ---
WS: [id number] EARLY OBSTETRICAL ULTRASOUND (<14 WEEKS). HISTORY: viability,? Subchorionic hemorrhage COMPARISON: 11/23/2022 Single intrauterine gestational sac is identified. Cardiac activity at 167 BPM. Security-[place]ide[place]-rump length cornelius sures 5.2 cm which corresponds to a gestation of 11w6d. Normal-appearing yolk sac and amnion demonstr ated. Small subchorionic hemorrhage. New small subchorionic hemorrhage is identified. Subchorionic he morrhages along the lower gestational sac measuring 5 x 25 mm. No free fluid. Neither ovary is identified. No adnexal mass. IMPRESSION: 1. Single intrauterine gestation of 11 weeks 6 days with an EDC of 07/10/2023. Appropriate growth sin ce the prior ultrasound. 2. New small subchorionic hemorrhage measures 5 x 25 mm. 3. Normal cardiac activity.
[2022-12-25] MEDS: sodium chloride 0.9% 1,000 ML 999 ML IV ×2 (09:37→10:41)
[2022-12-25 09:39] VITALS: BP 122/78; PULSE 74; O2SAT 100
[2022-12-25 09:39] LABS: Basophils % 0.3 %; Eosinophils # 0.1 10^3/uL (0.0-0.8); Eosinophils % 1.5 %; Hematocrit 34.4 % (36-47); Lymphocytes # 1.4 10^3/uL (0.8-4.8); Lymphocytes % 18.1 %; Mean Corpuscular Hemoglobin 29.8 pg (27-33); Mean Corpuscular Volume 87.5 fl (85-98); Monocytes # 0.4 10^3/uL (0.2-0.9); Monocytes % 5.9 %; Neutrophils # 5.57 10^3/uL (1.8-7.7); Neutrophils % 73.9 %; Nucleated Red Blood Cells % 0 %; Platelet Count 327 10^3/cmm (157-399); Red Blood Count 3.93 10^6/uL (3.85-5.65); Red Cell Distribution Width 12.9 % (12.1-15.1); White Blood Count 7.52 10^3/uL (3.29-11.43)
[2022-12-25 09:58] LABS: Urine Appearance Clear (CLEAR); Urine Color Yellow (Yellow)
[2022-12-25 09:59] LABS: Add Urine Microscopic? YES; Bacteria Urine TRACE /hpf; Bilirubin Urine Neg (Negative); Blood Urine Neg (Negative); Glucose Urine UA Norm (Normal); Ketones Urine Negative (Negative); Leukocyte Esterase Urine 1+ (Negative); Nitrate Urine Negative (Negative); Protein Urine Neg (Negative); RBC Urine RARE /hpf (0-2); Specific Gravity, Urine 1.005 (1.005-1.030); Squamous Epithelial Cell Urine 0-4 /hpf (0-5); Urobilinogen Urine Norm (Negative); WBC Urine 0-4 /hpf (0-5); pH Urine 6 (5-7)
[2022-12-25 10:08] LABS: Alanine Aminotransferase < 5 U/L (0-33); Albumin Level 4.2 g/dL (3.5-5.2); Alkaline Phosphatase 52 U/L (35-105); Aspartate Amino Transferase 12 U/L (0-32); Blood Urea Nitrogen 8 mg/dL (6-20); Calcium 9.3 mg/dL (8.5-10.5); Carbon Dioxide 21 mmol/L (22-29); Chloride 100 mmol/L (98-107); Glomerular Filtration Rate 121.8 mL/min (90-130); Glucose 94 mg/dL (65-115); Osmolality Calculated 272 mOsm/kg (285-295); Sodium 132 mmol/L (136-145); Total Bilirubin 0.3 mg/dL (0.15-1.2); Total Protein 7.2 g/dL (6.6-8.7)
--- NOTE | 2022-12-25 10:16 | W.ED.PREGNAN ---
HPI - General: Chief complaint: Vaginal Bleeding Stated complaint: cramps, stomach and back pains 13 weeks preg Time Seen by Provider: 12/25/22 09:12 Source: patient Mode of arrival: ambulatory History of Present Illness: 27-year-old G4, P2 SAB 1 female at approximately 13 weeks gestation based on LMP and first trimester ultrasound. Presents with pelvic cramping and discomfort and vaginal bleeding. She had a brief episode of vaginal bleeding this morning is resolved she still having some cramping. She denies dysuria urgency or frequency. MD Complaint: abdominal pain and vaginal bleeding Onset (ago): hour(s) Pain Consistency: intermittent and now resolved Location: pelvis Severity: mild Quality: Cramping Relieving factors: none Exacerbating factors: none Vaginal bleeding: light (Spotting has already resolved) care: followed by OB and previous ultrasound confirms IUP Associated symptoms: Deny abdominal pain, dyspareunia, dysuria, headache(s), malaise, nausea, rash, seizures, short of breath, syncope, vaginal bleeding, vaginal discharge, visual changes, vomiting or weakness Related Data: : 4 Review of Systems Const: Denies: fever(s), chills, fatigue or malaise Card: Denies: chest pain or syncope Resp: Denies: dyspnea, productive cough or non-productive cough GI: Denies: abdominal pain, nausea or vomiting : Reports: vaginal bleeding; Denies: dysuria, urinary frequency, urinary urgency, vaginal discharge or dyspareunia Skin/Breast: Denies: rash or pruritus Neuro: Denies: headache(s) PFSH ED PFSH: Medical History No pertinent past medical history Family History Grandmother Breast cancer paternal Father Diabetes Mother Stroke Denies family history of Colon cancer Ovarian cancer Hypercholesteremia Hypertension Uterine cancer Thyroid disease Social History Smoking and tobacco status: current every day smoker Female Reproductive History: : 4 Physical Exam Const: GENERAL APPEARANCE: cooperative and comfortable ORIENTATION/CONSCIOUSNESS: Yes awake, Yes oriented to person, Yes oriented to place and Yes oriented to time HENMT: COMMON NORMALS: normocephalic, atraumatic and hearing grossly normal bilaterally HEAD & SCALP: normocephalic and atraumatic Resp: COMMON NORMALS: normal respiratory effort, No retractions, No use of accessory muscles and clear to auscultation bilaterally AUSCULTATION: clear to auscultation bilaterally Cardio: COMMON NORMALS: regular rate, regular rhythm and No murmurs present (Cardio) RATE: regular rate RHYTHM: regular rhythm GI: COMMON NORMALS: Soft to palpation and No hepatosplenomegaly present AUSCULTATION: Yes normoactive bowel sounds PALPATION: Yes Soft to palpation, No Tenderness to palpation present (GI), No Guarding due to palpation present (GI) and Yes No hepatosplenomegaly present : SPECULUM EXAM - VAGINA: No vaginal bleeding OB/EXTERNAL & SPECULUM: No vaginal bleeding Extremity: COMMON NORMALS: normal to inspection, capillary refill normal, no clubbing, cyanosis or edema, no calf tenderness and no pedal edema Neuro: SENSORIUM/ORIENTATION: Yes oriented to person, Yes oriented to place and Yes oriented to time Skin: COMMON NORMALS: no rashes or lesions noted GENERAL SKIN EXAM: no rashes or lesions noted Course Vital Signs: Vital signs: Vital Signs Temperature 98.2 F 12/25/22 09:16 Pulse Rate 62 12/25/22 11:35 Respiratory Rate 15 12/25/22 09:16 Blood Pressure 121/80 12/25/22 11:35 Pulse Oximetry 100 12/25/22 11:35 Oxygen Delivery Me thod Room Air 12/25/22 10:41 MDM - OB/Uterine Contractions Medical Decision Making Good heart tone small subchorionic hemorrhage beta-hCG appropriate avoid gestational age. Follow-up with OB return if has further problems. Discussed that it may she may continue to have intermittent spotting and bleeding. If significantly worsens recheck Medical Records I reviewed the patient's medical records. Lab Data I reviewed the patient's lab results. 12/25/22 09:28 12/25/22 09:28 Laboratory Results WBC 7.52 10^3/uL (3.29-11.43) 12/25/22 09:28 RBC 3.93 10^6/uL (3.85-5.65) 12/25/22 09:28 Hgb 11.70 g/dL (11.27-16.99) 12/25/22 09: Hct 34.4 % (36-47) L 12/25/22 09: MCV 87.5 fl (85-98) 12/25/22 09: MCH 29.8 pg (27-33) 12/25/22 09: MCHC 34.0 g/dL (30-55) 12/25/22 09: RDW 12.9 % (12.1-15.1) 12/25/22 09: Plt Count 327 10^3/cmm (157-399) 12/25/22 09: MPV 10.0 fL (7.4-10.4) 12/25/22 09: Neut % (Auto) 73.9 % 12/25/22 09: Lymph % (Auto) 18.1 % 12/25/22 09: [place] % (Auto) 5.9 % 12/25/22 09: Eos % (Auto) 1.5 % 12/25/22 09: Baso % (Auto) 0.3 % 12/25/22 09: Neut # (Auto) 5.57 10^3/uL (1.8-7.7) 12/25/22 09: Lymph # (Auto) 1.4 10^3/uL (0.8-4.8) 12/25/22 09: [place] # (Auto) 0.4 10^3/uL (0.2-0.9) 12/25/22 09: Eos # (Auto) 0.1 10^3/uL (0.0-0.8) 12/25/22: Baso # (Auto) 0.0 10^3/uL (0.0-0.1) 12/25/22 09: Nucleated RBC % (auto) 0 % 12/25/22 09: Nucleated RBCs # 0.0 /100WBC 12/25/22 09: Sodium 132 mmol/L (136-145) L 12/25/22 09: Potassium 4.0 mmol/L (3.5-5.1) 12/25/22 09: Chloride 100 mmol/L (98-107) 12/25/22 09: Carbon Dioxide 21 mmol/L (22-29) L 12/25/22 09:28 Anion Gap 15.0 (5-19) 12/25/22 09:28 BUN 8 mg/dL (6-20) 12/25/22 09:28 Creatinine 0.6 mg/dL (0.5-0.9) 12/25/22 09:28 GFR Calculation 121.8 mL/min (90-130) 12/25/22 09:28 Glucose 94 mg/dL (65-115) 12/25/22 09:28 Calculated Osmolality 272 mOsm/kg (285-295) L 12/25/22 09:28 Calcium 9.3 mg/dL (8.5-10.5) 12/25/22 09:28 Total Bilirubin 0.3 mg/dL (0.15-1.2) 12/25/22 09:28 AST 12 U/L (0-32) 12/25/22 09:28 ALT < 5 U/L (0-33) 12/25/22 09:28 Alkaline Phosphatase 52 U/L (35-105) 12/25/22 09:28 Total Protein 7.2 g/dL (6.6-8.7) 12/25/22 09:28 Albumin 4.2 g/dL (3.5-5.2) 12/25/22 09:28 Globulin 3.0 g/dL (1.3-4.6) 12/25/22 09:28 Ser , Semi-Qnt 641587.00 mIU/mL 12/25/22 09:28 Urine Color Yellow (Yellow) 12/25/22 09:35 Urine Appearance Clear (CLEAR) 12/25/22 09:35 Urine pH 6 (5-7) 12/25/22 09:35 Ur Specific [place] 1.005 (1.005-1.030) 12/25/22 09:35 Urine Protein Neg (Negative) 12/25/22 09:35 Urine Glucose (UA) Norm (Normal) 12/25/22 09:35 Urine Ketones Negative (Negative) 12/25/22 09:35 Urine Blood Neg (Negative) 12/25/22 09:35 Urine Nitrate Negative (Negative) 12/25/22 09:35 Urine Bilirubin Neg (Negative) 12/25/22 09:35 Urine Urobilinogen Norm mg/dL (Negative) 12/25/22 09:35 Ur Leukocyte Esterase 1+ (Negative) H 12/25/22 09:35 Urine RBC Rare /hpf (0-2) 12/25/22 09:35 Urine WBC 0-4 /hpf (0-5) H 12/25/22 09:35 Ur Squamous Epith Cells 0-4 /hpf (0-5) H 12/25/22 09:35 Amorphous Sediment Not Reportable 12/25/22 09:35 Urine Bacteria Trace /hpf (NONE) 12/25/22 09:35 Urine Sperm /hpf 12/25/22 09:35 Discharge Plan Discharge Patient Disposition: Home Clinical Impression: Subchorionic hemorrhage in first trimester Condition: Stable Prescriptions: No Action Alive Daily Support 180 mcg-25 mg- 25 mg tablet,chewable PO ondansetron HCl 4 mg tablet 4 mg PO Q6H PRN (Reason: nausea and vomiting) Qty: 30 2RF ferrous gluconate 225 mg (27 mg iron) Tablet 225 mg PO DAILY Discharge Orders: Discharge ED (Routine); Ordered 12/25/22 Ordered By: Bladimir Zee Referrals: Ishmael Segal MD [Primary Care Provider] - Discharge Diet: Usual diet Discharge Activity: Limit activity as instructed Patient Instructions: Opioid Safety, Pain Management Activity Restrictions/Additional Instructions: You are found to have a subchorionic hemorrhage. Recommend pelvic rest (no intercourse, minimal exertional activities). Follow-up with your [facility]FER[facility] return if you have worsening bleeding. You will likely have some intermittent spotting and cramping for the next week. Coding Level of Care Code ED Skid Worker for Dolores Encarnacion
[2022-12-25 10:41] VITALS: BP 125/81; PULSE 66; O2SAT 100
[2022-12-25 11:32] VITALS: BP 121/80; PULSE 62; O2SAT 100
[2022-12-25 11:35] VITALS: BP 121/80; PULSE 62; O2SAT 100
== END 2022-12-25 11:35 | disposition home or self-care (01) ==
PROVIDERS: Emergency Provider Family Medicine; PCP Obstetrics & Gynecology
DX: O20.8 Other hemorrhage in early pregnancy (principal); Z3A.13 13 weeks gestation of pregnancy; O99.331 Smoking (tobacco) complicating pregnancy, first trimester; F17.210 Nicotine dependence, cigarettes, uncomplicated
CPT/HCPCS: 76801; 80053; 81001; 84702; 85025; 96360; 99284; J7030

== ENCOUNTER → 2022-12-26 10:57 | Outpatient (BNVA) | payer MEDICAID, SELFPAY | PROVIDERS: Visit Provider Obstetrics & Gynecology | DX: Z34.90 Encounter for supervision of normal pregnancy, unspecified, unspecified trimester (principal) | CPT/HCPCS: 80307; 84315; 86592; 86762; 86803; 86850; 86900; 87086; 87340; 87806 ==

== ENCOUNTER → 2023-01-30 15:35 | Outpatient (BNVA) | payer MEDICAID, SELFPAY | PROVIDERS: Visit Provider Nurse Practitioner Women's Health | DX: Z34.90 Encounter for supervision of normal pregnancy, unspecified, unspecified trimester (principal) | CPT/HCPCS: 82105 ==

== ENCOUNTER 2023-02-25 16:08 | Outpatient (CLI) | payer MEDICAID, SELFPAY ==
[2023-02-25 16:10] VITALS: RESP 18
[2023-02-25 16:21] VITALS: BP 133/75; PULSE 80
[2023-02-25 16:36] VITALS: BP 126/70; PULSE 78
== END 2023-02-25 16:31 | disposition home or self-care (01) ==
LOC: OPOB 16:08 → OBGYN 16:09
PROVIDERS: Visit Provider Obstetrics & Gynecology
DX: O26.899 Other specified pregnancy related conditions, unspecified trimester (principal); Z3A.00 Weeks of gestation of pregnancy not specified
CPT/HCPCS: 99211

== ENCOUNTER → 2023-02-26 14:18 | Outpatient (BNVA) | payer MEDICAID, SELFPAY | PROVIDERS: Visit Provider Nurse Practitioner Women's Health | DX: Z34.80 Encounter for supervision of other normal pregnancy, unspecified trimester (principal); Z3A.00 Weeks of gestation of pregnancy not specified | CPT/HCPCS: 76805; 84315 ==

== ENCOUNTER 2023-06-28 17:03 | Outpatient (CLI) | payer MEDICAID, SELFPAY ==
[2023-06-28 17:00] VITALS: RESP 17; BMI 25.9
[2023-06-28 17:19] VITALS: BP 128/79; PULSE 81
[2023-06-28 17:34] VITALS: BP 126/82; PULSE 72
[2023-06-28 17:50] VITALS: BP 126/79; PULSE 84
[2023-06-28 18:37] LABS: Basophils % 0.3 %; Eosinophils # 0.1 10^3/uL (0.0-0.8); Eosinophils % 1.1 %; Hematocrit 28.3 % (36-47); Lymphocytes # 1.7 10^3/uL (0.8-4.8); Lymphocytes % 21.5 %; Mean Corpuscular HGB Conc 29.3 g/dL (30-55); Mean Corpuscular Hemoglobin 24.1 pg (27-33); Mean Platelet Volume 10.6 fL (7.4-10.4); Monocytes # 0.5 10^3/uL (0.2-0.9); Monocytes % 6.4 %; Neutrophils # 5.55 10^3/uL (1.8-7.7); Neutrophils % 70.2 %; Nucleated Red Blood Cells % 0 %; Platelet Count 309 10^3/cmm (157-399); Red Blood Count 3.45 10^6/uL (3.85-5.65); Red Cell Distribution Width 18.7 % (12.1-15.1); White Blood Count 7.91 10^3/uL (3.29-11.43)
== END 2023-06-28 18:09 | disposition home or self-care (01) ==
LOC: OPOB 17:04 → OBGYN 17:07
PROVIDERS: Visit Provider Family Medicine
DX: O26.899 Other specified pregnancy related conditions, unspecified trimester (principal); Z3A.00 Weeks of gestation of pregnancy not specified; R10.9 Unspecified abdominal pain
CPT/HCPCS: 36415; 59025; 85025; 99211

== ENCOUNTER 2023-07-01 00:02 | Inpatient (IN) | payer MEDICAID, SELFPAY ==
[2023-06-30 17:52] VITALS: BP 131/89; PULSE 86
[2023-06-30 18:14] VITALS: BP 120/78; PULSE 88
[2023-06-30 18:20] LABS: Actim Prom Positive; Nitrazine Paper, PH Positive
[2023-06-30 18:42] VITALS: BP 129/81; PULSE 86
[2023-06-30 18:53] VITALS: BP 126/82; PULSE 86
[2023-06-30 19:58] VITALS: BMI 25.8
[2023-06-30 20:02] LABS: Basophils % 0.2 %; Eosinophils # 0.1 10^3/uL (0.0-0.8); Eosinophils % 1.1 %; Lymphocytes # 1.5 10^3/uL (0.8-4.8); Lymphocytes % 16.8 %; Mean Corpuscular HGB Conc 30.4 g/dL (30-55); Mean Corpuscular Hemoglobin 24.4 pg (27-33); Mean Corpuscular Volume 80.5 fl (85-98); Mean Platelet Volume 10.7 fL (7.4-10.4); Monocytes # 0.5 10^3/uL (0.2-0.9); Monocytes % 5.8 %; Neutrophils # 6.86 10^3/uL (1.8-7.7); Neutrophils % 75.7 %; Nucleated Red Blood Cells % 0 %; Platelet Count 311 10^3/cmm (157-399); Red Blood Count 3.48 10^6/uL (3.85-5.65); Red Cell Distribution Width 19.4 % (12.1-15.1); White Blood Count 9.07 10^3/uL (3.29-11.43)
[2023-06-30] MEDS: miSOPROStol 100 mcg tablet 25 MCG SUBLINGUAL (23:37)
[2023-06-30 23:44] VITALS: BP 132/81; PULSE 72; TEMP 36.4
[2023-07-01] VITALS (60 sets, daily range): BP systolic 109–146; BP diastolic 55–92; PULSE 54–90; RESP 16–18; TEMP 36.6–36.8; O2SAT 97–100
[2023-07-01] MEDS: lactated ringers 1,000 ML 999 ML IV ×2 (00:35→01:33)
[2023-07-01] MEDS: ROPivacaine syringe 100 MG/50 ML SYRINGE 10 MG EPIDURAL ×2 (02:01→06:21)
--- NOTE | 2023-07-01 02:03 | P.ANESASSM_ITS ---
Pre-Anesthetic Assessment Height/Weight: Height 1.75 m Weight 79.379 kg Temp Pulse BP Pulse Ox O2 Del Method 97.5 F L 70 141/89 100 Room Air 06/30/23 23:44 07/01/23 02:00 07/01/23 01:57 07/01/23 02:00 06/30/23 19:50 Preop Diagnosis: IUP Labor Epidural Familial anesthetic complications: None Was Beta Joni taken within 24 hours: N/A Was Clonidine taken within 24 hours: N/A Last intake: 06/30/23 1500 MEAL CLEARS- CURRENT Social No alcohol and No tobacco Exam alert, oriented x 3 and clear to auscultation bilaterally Airway Submandibular: within normal limits Cervical ROM: within normal limits Mallampati: Class II Dentition: full History/ROS No significant history except as noted Pulmonary Asthma ( CHILDHOOD ) CV/HEM None reported None reported Hepatic None reported GI Gastroesophageal Reflux Disease Metabolic None reported Musc/skel None reported Neuropsych Syncope and Transient Ischemic Attack Clinical work up for POTS prior to patient reports syncopal episodes. TIA listed patient stated post covid she developed facial numbness/paralysis and visual issues that resolved. Anesthetic Plan ASA status: 2 Anesthesia: Regional (specify below) Other: Labor Epidural Medications/Allergies Home Medications Medication Instructions Recorded Confirmed Last Taken Type ferrous gluconate 225 mg (27 mg 225 mg PO DAILY 11/15/22 06/30/23 06/30/23 17:00 History iron) tablet mv-mn no.97-folic 180 mcg-dha 25 tab PO 12/26/22 02/28/23 06/30/23 17:00 History mg-herb no.293 25 mg chewable tablet (Alive Daily Support ) Allergies Allergy/AdvReac Type Severity Reaction Status Date / Time No Known Allergies Allergy Verified 02/28/23 16:09 Current Medications Generic Name Dose Route Start Last Admin Trade Name Freq PRN Reason Stop Dose Admin Lactated Ringer's 1,000 mls @ 999 mls/hr 07/01/23 00:06 07/01/23 01:33 Lactated Ringers IV 999 mls/hr .Q1H1M PRN Administration See label comments Ropivacaine 100 mg in 50 mls @ 10 mls/hr 07/01/23 00:15 07/01/23 02:01 Naropin Syringe EPIDURAL 10 mls/hr .Q5H RELL Administration PFSH Anesthesia Medical History No pertinent past medical history Family History Grandmother Breast cancer paternal Father Diabetes Mother Stroke Denies family history of Colon cancer Ovarian cancer Hypercholesteremia Hypertension Uterine cancer Thyroid disease Social History Smoking and tobacco/nicotine status: current every day tobacco/nicotine user Female Reproductive History : 4 Data Anesthesia 06/30/23 19:05 Short CBC 06/30/23 Range/Units 19:05 WBC 9.07 (3.29-11.43) 10^3/uL Hgb 8.50 L (11.27-16.99) g/dL Hct 28.0 L (36-47) % MCV 80.5 L (85-98) fl Plt Count 311 (157-399) 10^3/cmm Neut % (Auto) 75.7 % Neut # (Auto) 6.86 (1.8-7.7) 10^3/uL Blood Bank 06/30/23 19:05 Blood Type O Positive Rho(D) Type Rh positive Antibody Screen Negative Cardiac Studies: 2 No Data to Display Anesthesia Procedures Epidural Time Out Performed: Yes Consents Signed: Procedure Consent Consent: from patient, risks and benefits reviewed and patient agrees to proceed Lumbar Level: L3-L4 Epidural position: sitting Epidural procedure: sterile prep of area, 1% lidocaine to numb the area, negative for paresthesia passed, test dose given, 1.5% xylocaine 1:200k epi, placed PCEA, no systemic response, sterile dressing applied, L.U.D. no apparent complications and 0.2% Ropiavacaine @ mls/hr (10) Additional Comments: JOSE MANUEL @ 5.5cm , first attempt, - heme -csf. catheter threaded to 12cm with ease. Adequate analgesia achieved.
[2023-07-01] MEDS: dextrose 5%-lactated ringers 1,000 ML 125 ML IV (02:39)
[2023-07-01] MEDS: ondansetron 2 mg/ML SDV 2 mL 4 MG IVP (05:03)
[2023-07-01] MEDS: oxytocin 30 UNIT/500 ML BAG 600 UNIT IV (06:06)
--- NOTE | 2023-07-01 06:25 | PM.OPHPUD ---
Labor & Delivery H&P Update Date of Procedure: July 01, 2023 Date H&P Performed: 06/27/23 Changes to previous documentation: On admission to the hospital the patient was leaking amniotic fluid Admission Diagnosis: 28-year-old 4 para 2-0-1-2 at 38 weeks estimated gestational age presenting with presumed rupture of membranes Preop diagnosis: IUP Planned procedure: Spontaneous vaginal delivery Other information: The patient is a 38-week female who presented to the hospital with spontaneous rupture membranes. She was found to be actim PROM positive. She was having contractions but had not demonstrated cervical change. Her is remarkable for having anemia of . She was on iron twice a day and was scheduled to have an iron infusion tomorrow. Otherwise her has been relatively unremarkable. Her labs are as follows. Her blood type was O+. Her antibody screen was negative. She passed her glucose screen. She is rubella immune. She is GBS negative. The remainder of her infectious disease profile was within normal limits. Her hemoglobin performed on 229 was 8.3. Her hemoglobin on the day of admission was 8.5. Related Problem List Diagnoses (1) 38 weeks gestation of : (2) Anemia affecting : A&P Assessment and plan (1) 38 weeks gestation of : I anticipate routine vaginal delivery. Will keep a close eye on her bleeding due to her anemia. She is being placed on Cytotec. Status: Acute (2) Anemia affecting : Status: Acute
--- NOTE | 2023-07-01 06:33 | PM.DELIVERY ---
Delivery Note: Date of delivery: July 01, 2023 Pre-delivery diagnoses: 28-year-old 4 para 2-0-1-2 at 38 weeks estimated gestational age Post-delivery diagnoses: Status post spontaneous vaginal delivery Procedure: Spontaneous vaginal delivery Delivering Physician: Papo Nails Estimated blood loss (mL): 200 Pre-Delivery Course: The patient presented to the hospital with spontaneous rupture membranes. Her nitrazine was inconclusive, but she was actim PROM positive. She was placed on Cytotec 25 mcg. An epidural was placed. She progressed to complete without difficulty. Delivery: DELIVERY: The patient progressed to complete without difficulty. She delivered a female with a weight of 3450 g with Apgars of 8, 9. The baby was delivered from the LILI position. and placed on the mother's abdomen. Her baby was bulb suctioned. The cord was then clamped and cut 1 minute after delivery.. There was a nuchal cord x 1 which was easily delivered prior to delivery of the shoulders. There was no meconium. The placenta and 3 vessel cord were delivered intact shortly thereafter. The perineum and vaginal vault were carefully examined. No lacerations were noted. Both the mother and the baby were in stable condition. Post-Delivery Status: Good History History History 4 Term 2 0 Miscarriages/Ectopic 1 Living Children 2 A&P Assessment and plan (1) 38 weeks gestation of : Anticipate routine care (2) Spontaneous vaginal delivery: (3) Anemia during : We will check her hemoglobin in 6 hours as long as she is hemodynamically stable. It we see any clinical symptoms consistent with anemia, we will consider further invention as needed. At this time, she looks great, and her bleeding has done well . Coding Level of Care Code Acute Code for Chg Fwd Diagnoses 38 weeks gestation of Z3A.38 Spontaneous vaginal delivery O80 Anemia during O99.019
[2023-07-01] MEDS: ferrous sulfate EC 325 mg Tablet PO ×2 (08:12→17:59)
[2023-07-01] MEDS: ibuprofen 800 mg tablet PO ×3 (08:13→21:01)
[2023-07-01] MEDS: docusate sodium 100 mg Capsule PO ×2 (08:13→17:59)
[2023-07-01] MEDS: prenatal vitamin Capsule 1 CAP PO (08:13)
--- NOTE | 2023-07-01 08:19 | PC.NURSE ---
Pt up to bathroom without difficulty. Vernell care performed by pt. Vernell pad, mesh underwear, and clean gown provided. Pt back to bed without assistance.
[2023-07-01] MEDS: HYDROcodone-acetaminophen 5-325 mg Tablet PO (10:13)
[2023-07-01] MEDS: lanolin oint 7 gm 1 APPLIC TOPICAL (10:14)
[2023-07-01] MEDS: benzocaine-menthol 78 gm Canister 1 SPRAY TOPICAL (10:14)
--- NOTE | 2023-07-01 10:36 | PC.NURSE ---
ambulated to OB 10 for routine post care. Oriented to room/call light. Feeding log and proud parent pack gone over. Plan of care discussed, questions answered.
[2023-07-01 12:11] LABS: Mean Corpuscular HGB Conc 30.7 g/dL (30-55); Mean Corpuscular Hemoglobin 24.4 pg (27-33); Mean Corpuscular Volume 79.3 fl (85-98); Mean Platelet Volume 10.8 fL (7.4-10.4); Platelet Count 287 10^3/cmm (157-399); Red Blood Count 3.53 10^6/uL (3.85-5.65); Red Cell Distribution Width 19.2 % (12.1-15.1)
[2023-07-02] MEDS: HYDROcodone-acetaminophen 5-325 mg Tablet PO (00:31)
[2023-07-02 03:50] VITALS: BP 126/80; PULSE 68; RESP 17; TEMP 36.6; O2SAT 98
--- NOTE | 2023-07-02 08:09 | P.DS_ITS ---
Discharge Providers HOME SPECIALIST Date of Admission: 07/01/23 00:02 Date of Discharge: 07/02/23 Attending Provider at Admission: Papo Nails MD Attending Provider at Discharge: Papo Nails MD Diagnoses at Discharge Discharge Diagnosis (1) 38 weeks gestation of : Status: Acute (2) Spontaneous vaginal delivery: Status: Acute (3) Anemia during : Status: Acute Reason for Visit Reason for Visit: water popped Hospital Course Hospital Course The patient arrived to the hospital was brought in rupture membranes. Her labor was augmented with Cytotec 25 mcg sublingual x 1. An epidural was placed. She progressed to complete and had an unremarkable delivery of a healthy appearing female infant. Her course was unremarkable. She breast-fed well. Her bleeding was within normal limits. Her vitals were stable. Her blood counts remained stable. Information Peripartum Data: Delivery Method: Vaginal Physical Exam Narrative: The patient is alert. She appears comfortable. Her heart has a regular rate and rhythm with no murmurs appreciated. Lungs are clear to auscultation bilaterally. Her fundus is firm and below the umbilicus. Urinary Catheter Management: Lloyd: Cath Placed During This Visit: yes, but has since been removed by the nurse Reason for Continuing Indwelling Catheter: Decision to DC Catheter Urinary Catheter Date of Insertion: 07/01/23 Urinary Catheter Time of Insertion: 02:30 Date Urinary Catheter Removed: 07/01/23 Time Urinary Catheter Discontinued: 06:00 History History History 4 Term 2 0 Miscarriages/Ectopic 1 Living Children 2 Discharge Data Studies Completed and Pending Laboratory Results WBC 14.10 10^3/uL (3.29-11.43) H 07/01/23 12:00 RBC 3.53 10^6/uL (3.85-5.65) L 07/01/23 12:00 Hgb 8.60 g/dL (11.27-16.99) L 07/01/23 12:00 Hct 28.0 % (36-47) L 07/01/23 12:00 MCV 79.3 fl (85-98) L 07/01/23 12:00 MCH 24.4 pg (27-33) L 07/01/23 12:00 MCHC 30.7 g/dL (30-55) 07/01/23 12:00 RDW 19.2 % (12.1-15.1) H 07/01/23 12:00 Plt Count 287 10^3/cmm (157-399) 07/01/23 12:00 MPV 10.8 fL (7.4-10.4) H 07/01/23 12:00 Neut % (Auto) 75.7 % 06/30/23 19:05 Lymph % (Auto) 16.8 % 06/30/23 19:05 [place] % (Auto) 5.8 % 06/30/23 19:05 Eos % (Auto) 1.1 % 06/30/23 19:05 Baso % (Auto) 0.2 % 06/30/23 19:05 Neut # (Auto) 6.86 10^3/uL (1.8-7.7) 06/30/23 19:05 Lymph # (Auto) 1.5 10^3/uL (0.8-4.8) 06/30/23 19:05 [place] # (Auto) 0.5 10^3/uL (0.2-0.9) 06/30/23 19:05 Eos # (Auto) 0.1 10^3/uL (0.0-0.8) 06/30/23 19:05 Baso # (Auto) 0.0 10^3/uL (0.0-0.1) 06/30/23 19:05 Nucleated RBC % (auto) 0 % 06/30/23 19:05 Nucleated RBCs # 0.0 /100WBC 06/30/23 19:05 Insulin-like GF I Positive 06/30/23 18:05 Fluid pH (paper) Positive H 06/30/23 18:05 Blood Type O Positive 06/30/23 19:05 Rho(D) Type Rh positive 06/30/23 19:05 Antibody Screen Negative 06/30/23 19:05 Vitals Last Vital Signs Temp 97.9 F 07/02/23 03:50 Pulse 68 07/02/23 03:50 Resp 17 07/02/23 03:50 BP 126/80 07/02/23 03:50 Pulse Ox 98 07/02/23 03:50 O2 Del Method Room Air 07/02/23 03:50 Results Labs OB ([facility]): Obstetrics US 03/14/23 Blood Type O Positive 06/30/23 Antibody Screen Negative 06/30/23 Hct 28.0 % (36-47) L 07/01/23 Hgb 8.60 g/dL (11.27-16.99) L 07/01/23 Rho(D) Type Rh positive 06/30/23 Plt Count 287 10^3/cmm (157-399) 07/01/23 Hep Bs Antigen Non-reactive (Nonreactive) 12/26/22 Hepatitis C Antibody Non-reactive (Nonreactive) 12/26/22 Rubella IgG Antibody 123.2 IU/mL (0.0-10.0) H 12/26/22 RPR Nonreactive (Nonreactive) 12/26/22 HIV 1&2 Ab & HIV 1 Ag Non-reactive (Non-Reactiv) 12/26/22 TSH 1.85 uIU/mL (0.27-4.20) 03/29/22 Cystic Fibrosis Screen Negative 12/26/22 Ser , Semi-Qnt 651195.00 mIU/mL 12/25/22 HCG, Qual Negative (Negative) 07/18/22 Urine Opiates Screen Negative ng/mL (Negative) 12/26/22 Ur Barbiturates Screen Negative ng/mL (Negative) 12/26/22 Ur Phencyclidine Scrn Negative ng/mL (Negative) 12/26/22 Ur Amphetamines Screen Negative ng/mL (Negative) 12/26/22 U Benzodiazepines Scrn Negative ng/mL (Negative) 12/26/22 Urine Cocaine Screen Negative ng/mL (Negative) 12/26/22 U Marijuana (THC) Screen Negative ng/mL (Negative) 12/26/22 Micro Urine Specimen 12/26/22 Discharge Plan Discharge Patient Disposition: Home Condition: Stable Prescriptions: New ibuprofen 800 mg Tablet 800 mg PO TID Qty: 45 0RF Continued Alive Daily Support 180 mcg-25 mg- 25 mg tablet,chewable PO ferrous gluconate 225 mg (27 mg iron) Tablet 225 mg PO DAILY Discharge Orders: Discharge Order (Routine); Ordered 07/02/23 Ordered By: Papo Nails Referrals: Papo Nails MD [Physician] - 6 Weeks Discharge Diet: Usual diet Discharge Activity: Resume usual activity Patient Instructions: Depression (DC), Opioid Safety (DC), Preeclampsia and Eclampsia After Delivery (GEN), Hemorrhage (DC), OB Discharge Report, OB Food/Drug Interaction Guide, Opioid Safety, OB Home Care, OB Vaginal Deliveries, Abnormal Bleeding Discharge Attestations HOME SPECIALIST Time Spent in Discharge Care*: less than 30 min Coding Level of Care Code Acute Code for Chg Fwd Diagnoses 38 weeks gestation of Z3A.38 Spontaneous vaginal delivery O80 Anemia during O99.019
[2023-07-02] MEDS: prenatal vitamin Capsule 1 CAP PO (10:01)
[2023-07-02] MEDS: ibuprofen 800 mg tablet PO (10:01)
[2023-07-02] MEDS: ferrous sulfate EC 325 mg Tablet PO (10:01)
[2023-07-02] MEDS: docusate sodium 100 mg Capsule PO (10:02)
[2023-07-02 11:00] VITALS: BP 123/77; PULSE 76; RESP 16; TEMP 36.6
== END 2023-07-02 11:15 | disposition home or self-care (01) | DRG 807 ==
LOC: OPOB 08:22 → OBGYN 08:22
PROVIDERS: Admitting Provider Family Medicine; Visit Provider Family Medicine
DX: O99.02 Anemia complicating childbirth (principal); Z37.0 Single live birth; D64.9 Anemia, unspecified; O69.81X0 Labor and delivery complicated by cord around neck, without compression, not applicable or unspecified; Z3A.38 38 weeks gestation of pregnancy
CPT/HCPCS: 36415; 51702; 59025; 59409; 83986; 84112; 85025; 85027; 86850; 86900; 96374; 99211; J2405; J2590; J2795; J7120; J7121

== ENCOUNTER 2023-10-11 09:31 | Emergency (ER) | payer MEDICAID, SELFPAY ==
[2023-10-11 09:44] VITALS: BP 119/83; PULSE 86; RESP 18; TEMP 36.8; O2SAT 97; BMI 21.4
--- NOTE | 2023-10-11 09:58 | XRR_ITS ---
PROCEDURE INFORMATION: Exam: XR Chest Exam date and time: 10/11/2023 10:17 AM Age: 28 years old Clinical indication: Cough and dyspnea; Additional info: Dyspnea/cough TECHNIQUE: Imaging protocol: Radiologic exam of the chest. Views: 1 view. COMPARISON: No relevant prior studies available. FINDINGS: Lungs: Unremarkable. No consolidation. Pleural spaces: Unremarkable. No pleural effusion. No pneumothorax. Heart/Mediastinum: Unremarkable. No cardiomegaly. Bones/joints: Unremarkable. XR/XR chest 1V portable [id number] IMPRESSION: No acute findings.
--- NOTE | 2023-10-11 09:59 | ECG_ITS ---
[facility] Test Date: 2023-10-11 Pat Name: Kalie Perez Department: Room: Gender: Female Methods And Procedures Analyst: : 1995 Requested By: Bladimir Myers Order Number: [id number] Reji MD: Karuna Nam M.D. Measurements Intervals [place] Rate: 84 P: 67 [place]: 168 QRS: 270 QRSD: 90 T: 66 QT: 357 QTc: 424 Interpretive Statements SINUS RHYTHM INDETERMINATE AXIS S1-S2-S3 PATTERN, CONSISTENT WITH PULMONARY DISEASE, RVH, OR NORMAL VARIANT No previous ECG available for comparison Electronically Signed On 10-11-2023 21:58:51 CDT by Karuna Nam M.D. [email or web address]
[2023-10-11 10:20] LABS: ABG PCO2 34.1 mmHg (35-45); ABG PH Result 7.38 (7.35-7.45); Alveolar-Arterial Oxygen Gradi 1.5 mmHg (5-10); Arterial Blood Gas Hematocrit 37.7 % (37-47); Base Excess ABG -4.2 mmol/L (-2.0-2.0); Blood Gas Allen Test Pos; Blood Gas Operator Identificat MONRO; Blood Gas Sample Site Radial, right; Blood Gas Sample Type Arterial; Carboxyhemoglobin 0.8 %THgb (0.4-20.1); HCO3 ABG 20.2 mmol/L (22-26); HGB O2 Sat 97.4 % (95-100); Ionized Calcium Level - ABG 1.3 mmol/L (1.1-1.4); Methemoglobin 0.2 % (0.4-1.5); Oxygen Device ROOM AIR; Oxygen Saturation ABG 98.4; PO2 ABG 94.4 mmHg (80.0-100.0); PO2 FiO2 Ratio Arterial Blood 0; Potassium Level - ABG 4.2 mmol/L (3.5-5.0); Total Hemoglobin 12.3 g/dL (12-16)
--- NOTE | 2023-10-11 10:25 | ED_ITS ---
HPI - Chest Pain 2 General: Chief Complaint: Chest Pain Stated Complaint: chest pain sob Time Seen by Provider: 10/11/23 09:58 History of Present Illness: 28-year-old female presents emergency de partment chief complaint of ongoing episodes of chest pain while at work and standing only reports when she is movement the chest pain goes away patient was reports she was at her job today when she was standing when she developed chest pain and near syncope patient endorses having a prior history of this in the past multiple episodes she endorses she is being scheduled to be seen by [facility] ip architect once the workup thus far has come back unremarkable patient does endorse having a known history of significant cardiac issues in her family including in her mother who is only in her 40s. The patient reports some mild chest discomfort this time but no actual pain she does not endorse during these episodes she has any palpitations or shortness of breath patient does not endorse any other associated symptoms. Associated symptoms: Deny abdominal pain, dyspnea, fever(s), nausea, palpitations or vomiting Review of Systems 2 General: Reports: 10 or more systems reviewed and unremarkable except in HPI and below Const: Denies: fever(s), chills, fatigue or malaise Eyes: Denies: change in vision or blurry vision Card: Reports: chest pain, lightheadedness and pre-syncope; Denies: palpitations Resp: Denies: dyspnea or productive cough GI: Denies: abdominal pain, nausea or vomiting : Denies: flank pain Musc: Denies: extremity pain or extremity swelling Skin/Breast: Denies: rash or pruritus Neuro: Denies: headache(s) Psych: Denies: anxiety or depression Ga/Lymph: Denies: easy bleeding All/Imm: Denies: urticaria, throat swelling or facial swelling PFSH ED 2 PFSH: Medical History No pertinent past medical history Family History Grandmother Breast cancer paternal Father Diabetes Mother Stroke Denies family history of Colon cancer Ovarian cancer Hypercholesteremia Hypertension Uterine cancer Thyroid disease Social History Smoking and tobacco/nicotine status: current every day tobacco/nicotine user Physical Exam 2 Narrative: EXAM NARRATIVE: Patient is nontoxic afebrile appearing in no obvious acute distress. Const: COMMON NORMALS: no acute distress, patient oriented x3 and healthy appearing HENMT: COMMON NORMALS: normocephalic and atraumatic HEAD & SCALP: n ormocephalic and atraumatic Eye: COMMON NORMALS: Equal, round and reactive pupils present and EOMs intact bilaterally PUPIL: Yes Equal, round and reactive pupils present Neck/C-Spine: COMMON NORMALS: full ROM, supple and no JVD Lymph: LYMPHATIC: no lymphadenopathy noted Chest: COMMONS NORMALS: normal inspection of the chest and normal palpation of entire chest wall Resp: COMMON NORMALS: normal respiratory effort, No retractions and clear to auscultation bilaterally EFFORT & INSPECTION: Yes able to speak in complete sentences and Yes symmetric chest movement AUSCULTATION: clear to auscultation bilaterally Cardio: COMMON NORMALS: no JVD, regular rate and regular rhythm RATE: r egular rate RHYTHM: regular rhythm GI: COMMON NORMALS: Normal to inspection, nondistended, normoactive bowel sounds present, Soft to palpation and non-tender INSPECTION: Yes normal to inspection PALPATION: Yes Soft to palpation : COMMON NORMALS: Yes no CVA tenderness BLADDER/KIDNEY EXAM: Yes no CVA tenderness Back/Pelvis: COMMON NORMALS: no CVA tenderness Extremity: COMMON NORMALS: normal to inspection and full ROM Neuro: COMMON NORMALS: patient oriented x3, CN's II-XII intact bilaterally, moves all extremities and no focal motor deficits Psych: COMMON NORMALS: mental status grossly normal, Normal thought process present, cooperative and normal affect THOUGHT PROCESS: Normal thought process present Skin: COMMON NORMALS: no rashes or lesions noted GENERAL SKIN EXAM: no rashes or lesions noted Course 2 Vital Signs: Vital signs: Vital Signs Temperature 98.3 F 10/11/23 09:44 Pulse Rate 76 10/11/23 11:50 Respiratory Rate 18 10/11/23 11:50 Blood Pressure 122/82 10/11/23 11:50 Pulse Oximetry 100 10/11/23 11:50 Oxygen Delivery Me thod Room Air 10/11/23 11:50 MDM - Chest Pain Medical Decision Making Due to patient seen in the condition lab work and imaging will be obtained we will continue to follow patient is currently asymptomatic on exam appearing healthy afebrile will continue follow-up with cardiac troponins and additional workup. Patient's lab work and imaging came back reassuring EKG appeared unremarkable cardiac troponin x 2 was unremarkable as well I did advise the patient to further follow-up with her ip architect for further evaluation and management in which to return the interim if any of her symptoms persist or worse I also instructed the patient increase her p.o. intake of oral fluids as well as reduce the likelihood of need of caffeine and nicotine as this can contribute to having cardiac arrhythmias that could be can consistent with some of her reported symptoms. Lab Data 10/11/23 10:41 10/11/23 10:41 Radiology Impressions Chest X-Ray 10/11/23 09:58 IMPRESSION: No acute findings. Laboratory Results WBC 5.16 10^3/uL (3.29-11.43) 10/11/23 10:41 RBC 4.27 10^6/uL (3.85-5.65) 10/11/23 10:41 Hgb 12.30 g/dL (11.27-16.99) 10/11/23 10:41 Hct 37.7 % (36-47) 10/11/23 10:41 MCV 88.3 fl (85-98) 10/11/23 10:41 MCH 28.8 pg (27-33) 10/11/23 10:41 MCHC 32.6 g/dL (30-55) 10/11/23 10:41 RDW 13.6 % (12.1-15.1) 10/11/23 10:41 Plt Count 334 10^3/cmm (157-399) 10/11/23 10:41 MPV 10.3 fL (7.4-10.4) 10/11/23 10:41 Neut % (Auto) 53.7 % 10/11/23 10:41 Lymph % (Auto) 35.7 % 10/11/23 10:41 [place] % (Auto) 8.1 % 10/11/23 10:41 Eos % (Auto) 1.9 % 10/11/23 10:41 Baso % (Auto) 0.6 % 10/11/23 10:41 Neut # (Auto) 2.77 10^3/uL (1.8-7.7) 10/11/23 10:41 Lymph # (Auto) 1.8 10^3/uL (0.8-4.8) 10/11/23 10:41 [place] # (Auto) 0.4 10^3/uL (0.2-0.9) 10/11/23 10:41 Eos # (Auto) 0.1 10^3/uL (0.0-0.8) 10/11/23 10:41 Baso # (Auto) 0.0 10^3/uL (0.0-0.1) 10/11/23 10:41 Nucleated RBC % (auto) 0 % 10/11/23 10:41 Nucleated RBCs # 0.0 /100WBC 10/11/23 10:41 D-Dimer <= 0.27 ug/mLFEU (0-0.59) 10/11/23 10:41 Specimen Type Arterial 10/11/23 10:06 Sample Site Radial, right 10/11/23 10:06 ABG pH 7.38 (7.35-7.45) 10/11/23 10:06 ABG pCO2 34.1 mmHg (35-45) L 10/11/23 10:06 ABG pO2 94.4 mmHg (80.0-100.0) 10/11/23 10:06 ABG PO2/FiO2 Ratio 0 10/11/23 10:06 ABG HCO3 20.2 mmol/L (22-26) L 10/11/23 10:06 ABG O2 Saturation 98.4 10/11/23 10:06 ABG Base Excess -4.2 mmol/L (-2.0-2.0) L 10/11/23 10:06 Polo Test Pos 10/11/23 10:06 A-a O2 Gradient 1.5 mmHg (5-10) L 10/11/23 10:06 Hematocrit 37.7 % (37-47) 10/11/23 10:06 Hgb O2 Saturation 97.4 % (95-100) 10/11/23 10:06 Carboxyhemoglobin 0.8 %THgb (0.4-20.1) 10/11/23 10:06 Methemoglobin 0.2 % (0.4-1.5) L 10/11/23 10:06 Total Hemoglobin 12.3 g/dL (12-16) 10/11/23 10:06 Sodium 137.0 mmol/L (131-143) 10/11/23 10:06 Potassium 4.2 mmol/L (3.5-5.0) 10/11/23 10:06 Glucose 101.0 mg/dL (70-115) 10/11/23 10:06 Ionized Calcium 1.3 mmol/L (1.1-1.4) 10/11/23 10:06 O2 Delivery Device Room air 10/11/23 10:06 FiO2 21.0 % 10/11/23 10:06 Sql Ssis Developer ID Monro 10/11/23 10:06 Sodium 136 mmol/L (136-145) 10/11/23 10:41 Potassium 4.4 mmol/L (3.5-5.1) 10/11/23 10:41 Chloride 103 mmol/L (98-107) 10/11/23 10:41 Carbon Dioxide 21 mmol/L (22-29) L 10/11/23 10:41 Anion Gap 16.4 (5-19) 10/11/23 10:41 BUN 15 mg/dL (6-20) 10/11/23 10:41 Creatinine 0.6 mg/dL (0.5-0.9) 10/11/23 10:41 GFR Calculation 120.8 mL/min (90-130) 10/11/23 10:41 Glucose 86 mg/dL (65-115) 10/11/23 10:41 Calculated Osmolality 282 mOsm/kg (285-295) L 10/11/23 10:41 Calcium 9.5 mg/dL (8.5-10.5) 10/11/23 10:41 Total Bilirubin 0.3 mg/dL (0.15-1.2) 10/11/23 10:41 AST 15 U/L (0-32) 10/11/23 10:41 ALT 10 U/L (0-33) 10/11/23 10:41 Alkaline Phosphatase 81 U/L (35-105) 10/11/23 10:41 Troponin T Baseline < 6 ng/L (0-10) 10/11/23 10:41 Troponin T 120 Minute 6.00 ng/L (0-10) 10/11/23 12:27 Delta Troponin T 0.32880 ABS# (0-10) 10/11/23 12:27 NT-Pro-B Natriuret Pep < 36 pg/mL (0-125) 10/11/23 10:41 Total Protein 7.4 g/dL (6.6-8.7) 10/11/23 10:41 Albumin 4.6 g/dL (3.5-5.2) 10/11/23 10:41 Globulin 2.8 g/dL (1.3-4.6) 10/11/23 10:41 Urine Color Yellow (Yellow) 10/11/23 11:05 Urine Appearance Clear (CLEAR) 10/11/23 11:05 Urine pH 5 (5-7) 10/11/23 11:05 Ur Specific [place] 1.025 (1.005-1.030) 10/11/23 11:05 Urine Protein Neg (Negative) 10/11/23 11:05 Urine Glucose (UA) Norm (Normal) 10/11/23 11:05 Urine Ketones Negative (Negative) 10/11/23 11:05 Urine Blood Neg (Negative) 10/11/23 11:05 Urine Nitrate Negative (Negative) 10/11/23 11:05 Urine Bilirubin Neg (Negative) 10/11/23 11:05 Urine Urobilinogen Norm mg/dL (Negative) 10/11/23 11:05 Ur Leukocyte Esterase Negative (Negative) 10/11/23 11:05 All radiology interpretation(s) finalized by discharge Discharge Plan Discharge Patient Disposition: Home Clinical Impression: Chest pain Qualifiers: Chest pain type: unspecified Qualified Code(s): R07.9 - Chest pain, unspecified Condition: Stable Prescriptions: No Action norelgestromin-ethin.estradiol 150-35 mcg/24 hr patch weekly 1 patch topical Q7D Discharge Orders: Discharge ED (Routine); Ordered 10/11/23 Ordered By: Stepan Yang Discharge Diet: Usual diet Patient Instructions: Angina (ED), Chest Pain (ED) Coding Level of Care Code ED [employer] Service Supervisor for Dolores Encarnacion
[2023-10-11 10:27] VITALS: BP 108/75; BP 118/74; BP 122/72; PULSE 107; PULSE 85; PULSE 92
[2023-10-11 11:16] LABS: Basophils % 0.6 %; Eosinophils # 0.1 10^3/uL (0.0-0.8); Eosinophils % 1.9 %; Hematocrit 37.7 % (36-47); Lymphocytes # 1.8 10^3/uL (0.8-4.8); Lymphocytes % 35.7 %; Mean Corpuscular HGB Conc 32.6 g/dL (30-55); Mean Corpuscular Hemoglobin 28.8 pg (27-33); Mean Corpuscular Volume 88.3 fl (85-98); Mean Platelet Volume 10.3 fL (7.4-10.4); Monocytes # 0.4 10^3/uL (0.2-0.9); Monocytes % 8.1 %; Neutrophils # 2.77 10^3/uL (1.8-7.7); Neutrophils % 53.7 %; Nucleated Red Blood Cells % 0 %; Platelet Count 334 10^3/cmm (157-399); Red Blood Count 4.27 10^6/uL (3.85-5.65); Red Cell Distribution Width 13.6 % (12.1-15.1); White Blood Count 5.16 10^3/uL (3.29-11.43)
[2023-10-11 11:21] LABS: Add Urine Microscopic? NO; Charge for UA Resulting for Rev
[2023-10-11 11:24] LABS: Bilirubin Urine Neg (Negative); Blood Urine Neg (Negative); Glucose Urine UA Norm (Normal); Ketones Urine Negative (Negative); Leukocyte Esterase Urine Negative (Negative); Nitrate Urine Negative (Negative); Protein Urine Neg (Negative); Specific Gravity, Urine 1.025 (1.005-1.030); Urine Appearance Clear (CLEAR); Urine Color Yellow (Yellow); Urobilinogen Urine Norm (Negative); pH Urine 5 (5-7)
[2023-10-11 11:36] LABS: Troponin(5th) Baseline < 6 ng/L (0-10)
[2023-10-11 11:38] LABS: D Dimer <= 0.27 ug/mLFEU (0-0.59)
[2023-10-11] MEDS: aspirin 81 mg Chew Tablet 324 MG PO (11:41)
[2023-10-11] MEDS: sodium chloride 0.9% 500 ML 999 ML IV (11:42)
[2023-10-11 11:50] VITALS: BP 122/82; PULSE 76; RESP 18; O2SAT 100
[2023-10-11 11:52] LABS: Alanine Aminotransferase 10 U/L (0-33); Albumin Level 4.6 g/dL (3.5-5.2); Alkaline Phosphatase 81 U/L (35-105); Anion Gap 16.4 (5-19); Aspartate Amino Transferase 15 U/L (0-32); Blood Urea Nitrogen 15 mg/dL (6-20); Calcium 9.5 mg/dL (8.5-10.5); Carbon Dioxide 21 mmol/L (22-29); Chloride 103 mmol/L (98-107); Creatinine Clr Calc Pharmacy 148.1054; Globulin 2.8 g/dL (1.3-4.6); Glomerular Filtration Rate 120.8 mL/min (90-130); Glucose 86 mg/dL (65-115); NT Pro B Type Natriuretic Pept < 36 pg/mL (0-125); Osmolality Calculated 282 mOsm/kg (285-295); Potassium 4.4 mmol/L (3.5-5.1); Sodium 136 mmol/L (136-145); Total Bilirubin 0.3 mg/dL (0.15-1.2); Total Protein 7.4 g/dL (6.6-8.7)
[2023-10-11 12:55] LABS: Troponin 5 2HR Delta 0.00001 ABS# (0-10)
--- NOTE | 2023-10-11 13:29 | ECG_ITS ---
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 Measurements Intervals [place] Rate: 67 P: 70 SD: 189 QRS: 251 QRSD: 81 T: 79 QT: 398 QTc: 422 Interpretive Statements SINUS RHYTHM INDETERMINATE AXIS LOW QRS VOLTAGE IN PRECORDIAL LEADS [QRS DEFLECTION < 1.0 mV IN CHEST LEADS] PATTERN CONSISTENT WITH PULMONARY DISEASE Compared to ECG 10/11/2023 09:53:28 Low QRS voltage now present Right ventricular hypertrophy no longer present Electronically Signed On 10-11-2023 22:11:00 CDT by Karuna Nam M.D. [id number]
== END 2023-10-11 14:27 | disposition home or self-care (01) ==
PROVIDERS: Family Medicine; Emergency Provider Emergency Medicine
DX: R07.89 Other chest pain (principal); F17.210 Nicotine dependence, cigarettes, uncomplicated
CPT/HCPCS: 36415; 36600; 71045; 80051; 80053; 81003; 82330; 82805; 83880; 84484; 85025; 85378; 93005; 99285; J7040

== ENCOUNTER → 2025-01-06 15:41 | Outpatient (BNVA) | payer MEDICAID, SELFPAY | PROVIDERS: Visit Provider Internal Medicine Cardiovascular Disease | DX: R07.9 Chest pain, unspecified (principal) | CPT/HCPCS: 93005 ==